=== PATIENT | male | born 1950 | race Caucasian/White ===

== ENCOUNTER 2020-03-28 06:53 | Outpatient (CLI) | payer MEDICARE, OTHER, SELFPAY ==
--- NOTE | ~2020-03-28 | CT_ITS ---
EXAMINATION: CT lung screening EXAM DATE: 03/28/2020 07:35 INDICATION: Personal history of nicotine dependence. TECHNIQUE: Spiral low dose CT of the chest without contrast. Axial, coronal and sagittal images were reviewed. The dose-length product (DLP) for this examination was 84.28 mGy-cm. The exposure was ta ilored according to patient size (auto mA exposure control), and iterative reconstruction (ASIR) was used as additional dose reduction technique. Comparison is made to prior examination from 03/03/2019. FINDINGS: There is a new 3 mm right lower lobe nodule on axial image 48. Some other small regions of post infectious residua are unchanged. There is mild to moderate emphysema. Cardiac pacemaker/AICD d evice. Tracheobronchial tree is patent. There is no mediastinal, hilar or axillary lymphadenopathy . There are no pleural or pericardial effusions. There is no pneumothorax. Heart normal in size . There are sternotomy wires, and cardiac/coronary surgical changes. Correlate with prior history. IVC filter. Hyperdense liver at 86 Hounsfield units, could indicate hemochromatosis or be from amioda rafaela. There is thoracic spondylosis without osteoblastic or osteolytic lesions identified. IMPRESSION: Lung-RADS category 2, benign appearance or behavior (<1% chance of malignancy); recommend continued LDCT screening in 1 year. Reviewed, dictated and finalized at location A.
== END 2020-03-28 06:54 | disposition home or self-care (01) ==
LOC: ANHIMG 07:00
PROVIDERS: PCP Family Medicine; Visit Provider Family Medicine
DX: Z87.891 Personal history of nicotine dependence (principal)
CPT/HCPCS: G0297

== ENCOUNTER 2020-05-08 09:30 | Outpatient (CLI) | payer MEDICARE, OTHER, SELFPAY ==
--- NOTE | ~2020-05-08 | XR_ITS ---
EXAMINATION: XR chest 2V DATE: 05/08/2020 09:58 INDICATION: Long-term amiodarone use. TECHNIQUE: Frontal and lateral views of the chest were obtained. COMPARISON: Chest 2 views 03/30/2019, chest CT 03/28/2020 FINDINGS: The lungs are hyperexpanded, consistent with emphysema. There is mild scarring at right mary jo g base. No pleural effusion or pneumothorax. The heart size is normal. Median sternotomy wires and me diastinal surgical clips are seen, likely from prior coronary artery bypass grafting. There is a left pacer/defibrillator with leads in right atrium, right ventricle, and coronary sinus. There is a filt er in the inferior vena cava. There is mild chronic anterior wedging of multiple midthoracic vertebra l bodies. IMPRESSION: 1. Stable mild scarring at right lung base. 2. Emphysema. Reviewed, dictated and finalized at location B. ING REPRESENTATIVE
== END 2020-05-08 09:31 | disposition home or self-care (01) ==
PROVIDERS: PCP Family Medicine
DX: Z51.81 Encounter for therapeutic drug level monitoring (principal); Z79.899 Other long term (current) drug therapy; J43.9 Emphysema, unspecified; R91.8 Other nonspecific abnormal finding of lung field
CPT/HCPCS: 71046

== ENCOUNTER 2021-07-04 08:13 | Outpatient (CLI) | payer MEDICARE, OTHER, SELFPAY ==
--- NOTE | ~2021-07-04 | CT_ITS ---
EXAMINATION: CTA chest DATE: 07/04/2021 09:02 INDICATION: Abdominal aortic aneurysm TECHNIQUE: Computed tomographic angiography (CTA) of the chest was performed without and with 100 mL Omnipaque-350 intravenous contrast. Volume-rendered 3D-reconstructions of the aorta and large arterie s were constructed by the technologist on a separate workstation. Automated exposure control and iter ative reconstruction technique were employed. The dose-length product was 750.20 mGy-cm. COMPARISON: CT dated 03/28/2020 FINDINGS: No significant interval change in a fusiform ascending thoracic aortic aneurysm measuring up to 4.5 x 4.3 cm in maximal diameter tapering to normal caliber at the aortic arch and descending thoracic aor ta. No dissection. Mild emphysema. Mild discoid atelectasis at the right lung base. Unchanged 3 mm ri ght middle lobe nodule. Persistent mucus impacted bronchus with tree-in-bud pattern in the posterior segment of the right upper lobe. No pneumonia, pulmonary edema or pleural effusion. Mild cardiomegaly with left ventricular enlargement. Three lead pacemaker/AICD seen with leads terminating at the righ t atrial appendage, apex of the right ventricle and in a coronary vein overlying the lateral wall of the left ventricle having traversed the coronary sinus. Atherosclerotic coronary artery calcification . Median sternotomy and changes of prior coronary artery bypass grafting. No pericardial effusion. No pathologically enlarged thoracic lymphadenopathy. Multiple contrast opacified chest wall and paraspi nal collateral vessels suggesting significant stenosis of the left subclavian and brachiocephalic vei ns around the pacemaker leads bilateral renal cysts measuring up to 2.6 cm in the right kidney. Infra renal IVC filter. There are few diverticula along the splenic flexure of the colon without adjacent i nflammatory change to suggest diverticulitis. Mild thoracic levocurvature with multiple chronic mild compression fractures in the mid to lower thoracic spine and mild to moderate spondylosis. Severe low er cervical spondylosis. IMPRESSION: 1. No significant change in a fusiform 4.5 x 4.3 cm ascending thoracic aortic aneurysm. 2. Mild emphysema. 3. Mild cardiomegaly with left ventricular enlargement. Reviewed, dictated and finalized at location B. ING MACHINE OPERATOR IMPRESSION: 1. No significant change in a fusiform 4.5 x 4.3 cm ascending thoracic aortic a neurysm. 2. Mild emphysema. 3. Mild cardiomegaly with left ventricular enlargement.
[2021-07-04 08:41] LABS: Estimated Glomerular Filt Rate 46
== END 2021-07-04 08:14 | disposition home or self-care (01) ==
LOC: ANHIMG 08:17
PROVIDERS: PCP Family Medicine; Visit Provider Internal Medicine Cardiovascular Disease
DX: I77.819 Aortic ectasia, unspecified site (principal); J43.9 Emphysema, unspecified; I51.7 Cardiomegaly
CPT/HCPCS: 71275; Q9967

== ENCOUNTER → 2021-09-23 02:06 | Day surgery (SDC) | payer MEDICARE, OTHER, SELFPAY ==
[2021-09-20 16:51] VITALS: BMI 22.6
[2021-09-23 09:04] VITALS: BP 146/99; PULSE 75; RESP 18; TEMP 36.5; O2SAT 100
[2021-09-23 09:04] LABS: Basophils Absolute Auto 0.1 K/mm3 (0.0-0.1); Basophils Percent Auto 0.7 % (0.2-1.2); Eosinophils Absolute Auto 0.2 K/mm3 (0-0.3); Eosinophils Percent Auto 1.9 % (0-4.4); Hematocrit 49.3 % (42.0-52.0); Hemoglobin 15.4 g/dL (14.0-18.0); Immature Granulocyte Absolute 0.05 K/mm3 (0.00-0.031); Immature Granulocyte Percent A 0.5 % (0-0.5); Lymphocytes Absolute Auto 1.45 K/mm3 (0.9-3.2); Lymphocytes Percent Auto 13.4 % (18.3-44.2); Mean Corpuscular HGB Conc 31.2 g/dl (32-36); Mean Corpuscular Hemoglobin 28.9 pg (26-34); Mean Corpuscular Volume 92.5 fl (80-100); Mean Platelet Volume 10.8 fl (7.4-10.4); Monocytes Absolute Auto 0.9 K/mm3 (0.1-0.6); Monocytes Percent Auto 8.2 % (2.6-8.5); Neutrophils Absolute Auto 8.1 K/mm3 (1.3-6.7); Neutrophils Percent Auto 75.3 % (45.5-73.1); Platelet Count Result 217 k/mm3 (150-375); Red Blood Count 5.33 M/mm3 (4.6-6.20); Red Cell Distribution Width 14.1 % (11.5-14.5); White Blood Count 10.8 K/mm3 (4.5-10.0)
[2021-09-23 09:10] VITALS: BMI 23.1
[2021-09-23 09:18] LABS: Anion Gap 7 mmol/L (8-16); Blood Urea Nitrogen 16 mg/dL (9-20); Carbon Dioxide 29 mmol/L (22-30); Chloride 103 mmol/L (98-107); Estimated CRCL calculation 47 ml/min; Estimated Glomerular Filt Rate 50; Glucose 104 mg/dL (65-110); Potassium 4.6 mmol/L (3.4-5.0); Sodium 139 mmol/L (137-145)
[2021-09-23 09:20] LABS: Prothrombin Time 13.2 Seconds (11.1-14.7)
[2021-09-23] MEDS: SODIUM CHLORIDE 0.9% IV 500 ML 100 ML IV CONT (09:20)
--- NOTE | 2021-09-23 09:47 | SUR.PREOP ---
Dr. Hoyt at bedside speaking with patient and family.
--- NOTE | 2021-09-23 09:48 | SUR.PREOP ---
Dr. Hoyt notified of outdated H & P office note.
--- NOTE | 2021-09-23 10:12 | SUR.PREOP ---
After lengthy discussion between Dr. Hoyt, patient and patient's LHC as been cancelled with plans to reschedule to be done at [facility]. Dr. Hoyt's office to reschedule this.
== END ==
PROVIDERS: PCP Family Medicine; Visit Provider Internal Medicine Cardiovascular Disease
PROC: 4A023N7 Measurement of Cardiac Sampling and Pressure, Left Heart, Percutaneous Approach (ICD-10-PCS; CPT 93452; principal; 2021-09-23 10:00)
DX: I25.10 Atherosclerotic heart disease of native coronary artery without angina pectoris (principal); Z53.9 Procedure and treatment not carried out, unspecified reason
CPT/HCPCS: 36415; 80048; 85025; 85610; 99211; G0463; J1644; J7040

== ENCOUNTER 2022-03-24 12:27 | Outpatient (CLI) | payer MEDICARE, OTHER, SELFPAY ==
--- NOTE | 2022-03-24 14:51 | WPDPFTINT ---
PFT Procedure Performed PFT Procedure Performed Plethysmography (Lung Vol) Diffusing Cap (DLCO) Flow Vol Loop Spirometry w/o Bronchodil PFT Interpretation This is a pulmonary function test with spirometry, plethysmography and diffusing capacity. The test was performed and results interpreted in accordance with the 2019 and 2005 ATS/ERS Task Force guidelines respectively using the Global Lung Function Initiative-2012 reference equations. Patient demonstrated good effort and cooperation. Reproducibility criteria were met. The quality of the spirometry maneuver was Grade A. Findings: Spirometry: there is decreased maximal expiratory airflow at all lung volumes with concave expiratory flow tracing. The FVC is 3.94 L, 113% predicted. The FEV1 is 2.57 L, 96% predicted. The FEV1: FVC ratio 65%. Plethysmography: The total lung capacity is 6.25 L, 105% predicted. Functional residual capacity is 4.16 L, 121% predicted. The residual volume is 2.31 L, 93% predicted. Diffusion capacity: Diffusing capacity unadjusted for hemoglobin and carboxyhemoglobin is 19.6, 85% predicted. The diffusing capacity adjusted for alveolar volume is 3.31, 83% predicted. Impression: There is a mild obstructive abnormality with a normal FEV1. The lung volumes are normal. The diffusion capacity is normal. There are no prior studies for comparison
== END 2022-03-24 12:28 | disposition home or self-care (01) ==
LOC: ANHPFT 12:31
PROVIDERS: PCP Family Medicine
DX: I48.91 Unspecified atrial fibrillation (principal); Z95.810 Presence of automatic (implantable) cardiac defibrillator; R94.2 Abnormal results of pulmonary function studies
CPT/HCPCS: 94375; 94726; 94729

== ENCOUNTER 2022-07-21 09:09 | Outpatient (CLI) | payer MEDICARE, OTHER, SELFPAY ==
--- NOTE | ~2022-07-21 | CT_ITS ---
EXAMINATION: CTA chest DATE: 07/21/2022 09:38 INDICATION: Abdominal aortic aneurysm TECHNIQUE: Computed tomographic angiography (CTA) of the chest was performed without and with 100 mL Omnipaque-350 intravenous contrast. Volume-rendered 3D-reconstructions of the aorta and large arterie s were constructed by the technologist on a separate workstation. 07/04/2021 The dose-length product wa s mGy-cm. COMPARISON: None. FINDINGS: Slight increase in size of a fusiform ascending thoracic aortic aneurysm previously measuring 4.5 x 4 .3 cm in maximal diameter, currently measuring 4.7 x 4.5 cm but containing to taper to a normal calib er at the aortic arch and descending thoracic aorta. No dissection. Mild emphysema. Unchanged minimal discoid atelectasis in the right upper lobe and mild bibasilar discoid atelectasis. Unchanged 4 mm n odule in the right upper lobe and 3 mm nodule in the right middle lobe. No pneumonia, pulmonary edema or pleural effusion. Mild cardiomegaly with left ventricular enlargement. Atherosclerotic coronary a rtery calcification. Median sternotomy and changes of prior coronary artery bypass grafting. Three le ad pacemaker/AICD seen with leads terminating at the right atrial appendage, apex of the right ventri jennifer and in a coronary vein overlying the lateral wall of the left ventricle having traversed the kenn nary sinus. No pericardial effusion. No pathologically enlarged thoracic lymphadenopathy. Again seen are multiple contrast opacified chest wall and paraspinal collateral vessels consistent with stenosis of the left subclavian and brachiocephalic veins around the pacemaker leads. Mild bilateral gynecoma stia. Bilateral renal cysts measuring up to 2.3 cm and the left kidney. There is a persistent mural c alcification along the posterior margin of a 2.2 cm right renal cyst. Infrarenal IVC filter. There ar e few diverticula along the splenic flexure of the colon without adjacent inflammatory change to sugges t diverticulitis. Mild thoracic levocurvature with multiple chronic mild compression fractures in the mid to lower thoracic spine and mild to moderate spondylosis. Severe lower cervical spondylosis. IMPRESSION: 1. Slight increase in size of a now 4.7 x 4.5 cm fusiform ascending thoracic aortic aneurysm. 2. Mild emphysema. 3. Mild cardiomegaly with left ventricular enlargement. Reviewed, dictated and finalized at location B. COOK IMPRESSION: 1. Slight increase in size of a now 4.7 x 4.5 cm fusiform ascending thoracic ao rtic aneurysm. 2. Mild emphysema. 3. Mild cardiomegaly with left ventricular enlargement.
[2022-07-21 09:31] LABS: Estimated Glomerular Filt Rate 43
== END 2022-07-21 09:10 | disposition home or self-care (01) ==
PROVIDERS: PCP Family Medicine; Visit Provider Internal Medicine Cardiovascular Disease
DX: I71.40 Abdominal aortic aneurysm, without rupture, unspecified (principal); J43.9 Emphysema, unspecified; I51.7 Cardiomegaly
CPT/HCPCS: 71275; Q9967

== ENCOUNTER 2023-07-16 13:48 | Inpatient (IN) | payer MEDICARE, OTHER, SELFPAY ==
[2023-07-16] VITALS (13 sets, daily range): BP systolic 116–142; BP diastolic 78–96; PULSE 80–86; RESP 12–20; TEMP 36.6; O2SAT 97–100
--- NOTE | ~2023-07-16 | CT_ITS ---
EXAMINATION: CTA chest PE protocol DATE: 07/16/2023 19:14 INDICATION: Right-sided chest pain and hemoptysis TECHNIQUE: Computed tomography angiography (CTA) of the chest was performed with 100 mL Omnipaque-350 intravenous contrast timed to evaluate the pulmonary arteries. Coronal maximum intensity projection 3D-reconstructions were created by the technologist. The dose-length product (DLP) was 409.58 mGy-cm. Automated exposure control and iterative reconstruction technique were employed. COMPARISON: 07/21/2022 FINDINGS: The pulmonary arteries are well-opacified. No pulmonary embolism is identified. There are s mall pleural effusions. Cardiomegaly is noted. There is mild emphysema. There is mild atelectasis of the lungs. There is no pneumothorax. Bilateral gynecomastia is noted. There is mild bilateral hilar l ymphadenopathy, likely reactive. There is a 4.7 cm fusiform aneurysm of the ascending aorta. There is moderate thoracic spondylosis. IMPRESSION: 1. No pulmonary embolus identified. 2. Small pleural effusions. 3. Cardiomegaly. Reviewed, dictated and finalized at location F. R D ENGINEER
--- NOTE | ~2023-07-16 | US_ITS ---
EXAMINATION: US venous doppler [facility] DATE: 07/16/2023 19:02 INDICATION: Bilateral lower limb swelling TECHNIQUE: Young scale images without and with compression and Doppler images of the bilateral lower e xtremity veins were obtained. COMPARISON: None FINDINGS: The right common femoral vein, profunda femoral vein, femoral vein, popliteal vein, peroneal trunk, p osterior tibial veins, and greater saphenous vein are patent. The left common femoral vein, profunda femoral vein, femoral vein, popliteal vein, peroneal trunk, po sterior tibial veins, and greater saphenous vein are patent. IMPRESSION: 1. Patent bilateral lower extremity veins. No evidence of deep venous thrombosis. Reviewed, dictated and finalized at location F. LOGGER IMPRESSION: 1. Patent bilateral lower extremity veins. No evidence of deep venous thrombosi s.
--- NOTE | 2023-07-16 18:10 | ECG_ITS ---
Measurements Intervals Myra Rate: 85 P: -48 ND: 85 QRS: -86 QRSD: 190 T: 30 QT: 495 QTc: 592 Interpretive Statements ELECTRONIC VENTRICULAR PACEMAKER VENTRICULAR PREMATURE COMPLEXES BASELINE ARTIFACT- III NO FURTHER INTERPRETATION IS POSSIBLE ATYPICAL ECG NO PREVIOUS ECG AVAILABLE FOR COMPARISON Electronically Signed On 07-16-2023 18:55:55 BALLET TEACHER by Bora Mast D.O.
--- NOTE | 2023-07-16 18:10 | ED.GENADULT ---
HPI - General Adult General Chief complaint: Unspecified <Lorena Dougherty PA-C - Last Filed: 07/17/23 01:28> Stated complaint: pneumonia <Lorena Dougherty PA-C - Last Filed: 07/17/23 01:28> Time Seen by Provider: 07/16/23 17:42 <Lorena Dougherty PA-C - Last Filed: 07/17/23 01:28> History of Present Illness HPI narrative: 73-year-old male with history of type 2 diabetes, hyperlipidemia, ischemic cardiomyopathy with a pacemaker and defibrillator in place since 2012, hypertension, CKD stage 4, pulmonary fibrosis, ascending aortic aneurysm reports to the emergency department for evaluation for right-sided pleuritic chest pain. Patient states the patient started on the left side about 3-4 days ago, now has moved to the right side for the past 2 days. States he had some right shoulder pain a few days ago, but that has since resolved. He otherwise denies radiating pain or symptoms, aggravating or alleviating factors beyond deep inspiration. The following history was provided by the patient's and the patient himself. The patient tested positive for COVID on 06/05/2024. The patient was seen by his PCP on 07/09/2023 for shortness of breath, worse on exertion. The concern was a possible secondary pneumonia, therefore he was started on Augmentin. There is also concern for pulmonary fibrosis given amiodarone use for years, however CT was held at that time due to upcoming appointment patient's lead project engineer, Dr. Hoyt where he is scheduled for CT scan on 07/27/2023. The patient was started on Augmentin and finished his last dose today. He reports persistent dyspnea, especially on exertion. Patient's did state that she noticed a productive cough and hemoptysis and mucus a few days ago which has since cleared up. The patient is also reporting bilateral lower extremity edema that started today, right greater than left. He denies history of this in the past and denies history of CHF. He had a bypass performed in 2012. He is on amiodarone for ?irregular heartbeat?, however has not had his defibrillator activated many years. The patient was evaluated by his bin worker on 07/01 at [facility] and was told he had an irregular heartbeat, however paced itself also therefore no intervention was required. He denies fever, abdominal pain, nausea, vomiting, diarrhea, diaphoresis, syncope. He does endorse palpitations with states these are not abnormal for him believes they are secondary to PVCs. Patient does state that he smoked approximately 1 pack per day for 25-30 years. He has not smoked since he was in his 40s. States he was told at one point he had COPD, however was felt by his lead project engineer he does not have COPD. <Lorena Dougherty PA-C - Last Filed: 07/17/23 01:28> Related Data Home medications: Home Medications Medication Instructions Recorded Confirmed amiodarone 200 mg tablet 200 mg PO DAILY 11/22/19 07/17/23 aspirin 81 mg tablet,delayed 81 mg PO DAILY 11/22/19 07/17/23 release mexiletine 150 mg capsule 150 mg PO TID 06/03/22 07/17/23 atorvastatin 80 mg tablet 80 mg PO DAILY 12/05/22 07/17/23 metoprolol succinate 50 mg 100 mg PO DAILY 12/05/22 07/17/23 tablet,extended release 24 hr <Lorena Dougherty PA-C - Last Filed: 07/17/23 01:28> Allergies/adverse reactions: Allergies Allergy/AdvReac Type Severity Reaction Status Date / Time No Known Allergies Allergy Verified 07/09/23 13:15 <Lorena Dougherty PA-C - Last Filed: 07/17/23 01:28> Review of Systems Review of Systems: CONSTITUTIONAL: Denies fever, chills, or sweats. EYES: Denies visual changes, redness, or discharge. ENT: Denies rhinorrhea, congestion, sore throat, or otalgia. CARDIOVASCULAR: See HPI RESPIRATORY: See HPI GASTROINTESTINAL: Denies abdominal pain, nausea, vomiting, or diarrhea. GENITOURINARY: Denies dysuria or hematuria. SKIN: Denies rash or itching. MUSCULOSKELETAL: Denies back pain, joint pain, or myalgia.
[2023-07-16 18:33] LABS: Basophils Absolute Auto 0.1 K/mm3 (0.0-0.1); Eosinophils Absolute Auto 0.3 K/mm3 (0-0.3); Eosinophils Percent Auto 3.7 % (0-4.4); Hematocrit 39.9 % (42.0-52.0); Hemoglobin 12.3 g/dL (14.0-18.0); Immature Granulocyte Absolute 0.04 K/mm3 (0.00-0.031); Immature Granulocyte Percent A 0.6 % (0-0.5); Lymphocytes Absolute Auto 1.03 K/mm3 (0.9-3.2); Lymphocytes Percent Auto 15.2 % (18.3-44.2); Mean Corpuscular HGB Conc 30.8 g/dl (32-36); Mean Corpuscular Hemoglobin 28.1 pg (26-34); Mean Corpuscular Volume 91.1 fl (80-100); Mean Platelet Volume 10.9 fl (7.4-10.4); Monocytes Absolute Auto 0.7 K/mm3 (0.1-0.6); Monocytes Percent Auto 9.8 % (2.6-8.5); Neutrophils Absolute Auto 4.7 K/mm3 (1.3-6.7); Neutrophils Percent Auto 69.7 % (45.5-73.1); Platelet Count Result 272 k/mm3 (150-375); Red Blood Count 4.38 M/mm3 (4.6-6.20); White Blood Count 6.8 K/mm3 (4.5-10.0)
[2023-07-16 18:44] LABS: INR 1.2; Prothrombin Time 15.6 Seconds (11.1-14.7)
[2023-07-16 18:46] LABS: Alanine Aminotransferase 77 U/L (6-50); Albumin Level 3.6 g/dL (3.5-5.1); Alkaline Phosphatase 101 U/L (38-126); Anion Gap 5 mmol/L (8-16); Aspartate Amino Transferase 56 U/L (17-59); Bilirubin,Total 0.8 mg/dL (0.2-1.3); Blood Urea Nitrogen 14 mg/dL (9-20); Calcium 8.5 mg/dL (8.4-10.2); Carbon Dioxide 28 mmol/L (22-30); Chloride 102 mmol/L (98-107); Estimated Glomerular Filt Rate 60; Glucose 98 mg/dL (65-110); Lipase 255 U/L (23-300); Sodium 135 mmol/L (137-145)
[2023-07-16 18:55] LABS: NT Pro B Type Natriuretic Pept 8600 pg/mL (19.9-100); Troponin I 0.013 ng/mL (0.000-0.034)
--- NOTE | 2023-07-16 20:06 | PC.NURSE ---
Patient ambulated to the restroom with steady gate
[2023-07-16 20:24] LABS: Appearance Urine Clear (Clear); Bilirubin Urine Negative (Negative); Blood Urine Negative (Negative); Color Urine Yellow (Yellow); Glucose Urine UA Negative (Negative); Ketones Urine Negative (Negative); Leukocyte Esterase Ur Negative LEU/UL (Negative); Nitrate Urine Negative (Negative); Protein Urine Negative (Negative)
[2023-07-16 20:30] LABS: Add Urine Microscopic? NO; Specific Grav Ur 1.044 (1.001-1.035)
[2023-07-16 23:12] LABS: Troponin I 0.012 ng/mL (0.000-0.034)
[2023-07-17] VITALS (15 sets, daily range): BP systolic 114–143; BP diastolic 74–99; PULSE 80–115; RESP 16–20; TEMP 35.6–36.9; O2SAT 98–100; BMI 25.4
[2023-07-17] MEDS: FUROSEMIDE INJ 40 MG/4 ML VIAL IV PUSH (02:48)
--- NOTE | 2023-07-17 03:30 | ADMGEN ---
This patient, Dre Franco, was admitted to Medical Room 249-01. Patient/family oriented to hospital policies and general routines including ID bracelet, bed and alarms, visiting hours, pain management, procedures, bathroom and other care routines, personal items, smoking policy, room service/diet, and visiting hours. Information on how to activate the Rapid Response Team has been discussed. Patient/Family are encouraged to report perceived risks to care and to ask questions if they do not understand what they are told or what they should do.
[2023-07-17] MEDS: METOPROLOL SUCCINATE EXT REL 50 MG TABCR 100 MG PO (11:12)
[2023-07-17] MEDS: ASPIRIN 81 MG ENTERIC TABLET PO (11:16)
[2023-07-17] MEDS: ATORVASTATIN 40 MG TABLET 80 MG PO (11:16)
[2023-07-17] MEDS: AMIODARONE HCL 200 MG TABLET PO (11:16)
[2023-07-17] MEDS: MEXILETINE HCL 150 MG CAPSULE PO ×3 (11:18→17:27)
--- NOTE | 2023-07-17 14:46 | PM.IMHP ---
H&P: HPI History of Present Illness Date/Time: 07/17/23 14:46 Chief Complaint: 73-year-old male with history of type 2 diabetes, hyperlipidemia, ischemic cardiomyopathy with a pacemaker and defibrillator in place since 2012, hypertension, CKD stage 4, pulmonary fibrosis, ascending aortic aneurysm reports to the emergency department for evaluation for right-sided pleuritic chest pain. Narrative: HPI provided by pt who reports left side chest pain that started about 3-4 days ago, now has moved to the right side for the past 2 days.? States he had some right shoulder pain a few days ago,that has since resolved, he denies any recent falls or trauma,?he otherwise denies radiating pain or symptoms, aggravating or alleviating factors beyond deep inspiration. Patient reports a positive COVID test on 06/05/2024, he reports seeing his PCP on 07/09/2023 for shortness of breath, worse on exertion, pt reports being started on Augmentin for secondary pneumonia.? He reports persistent dyspnea, especially on exertion. The patient is also reporting bilateral lower extremity edema that started about one day prior to admission, right greater than left.? He denies history of this in the past and denies history of CHF.? He had a bypass performed in 2012.? He is on amiodarone for ?irregular heartbeat?, however has not had his defibrillator activated many years.? He denies fever, abdominal pain, nausea, vomiting, diarrhea, diaphoresis, syncope.? He does endorse palpitations with states these are not abnormal for him believes they are secondary to PVCs.? Patient does state that he smoked approximately 1 pack per day for 25-30 years.? States he was told at one point he had COPD, however was felt by his computer aided design drafter he does not have COPD. ED work-up reveals: CBC without leukocytosis, hemoglobin is 12.3 slightly decreased from prior study history of anemia, denies melena or hematochezia, MCV normal, mild ALT elevation 77, all other LFTs are normal, lipase normal no tenderness on exam negative Montejo's sign, low suspicion for cholecystitis, CTA chest shows no evidence of PE. CT revealed small pleural effusion and cardiomegaly Review of Systems Review of Systems: CONSTITUTIONAL: Denies fever, chills, or sweats. EYES: Denies visual changes, redness, or discharge. ENT: Denies rhinorrhea, congestion, sore throat, or otalgia. CARDIOVASCULAR: See HPI RESPIRATORY: See HPI GASTROINTESTINAL: Denies abdominal pain, nausea, vomiting, or diarrhea. GENITOURINARY: Denies dysuria or hematuria. SKIN: Denies rash or itching. MUSCULOSKELETAL: Denies back pain, joint pain, or myalgia. NEUROLOGIC: Denies headache, numbness, or weakness. PSYCHIATRIC: Denies anxiety or depression. ON LICENSE OF [facility] Family History Family History Sibling Cerebrovascular accident Mother Diabetes mellitus Hypertension Father History of blood clots Hypertension Social History Social History Smoking packs per day: 1 Smoking cigarettes per day: 20.0 Years smoked: 35 Smoking pack-years: 35.00 Smoking status: Former smoker Tobacco type: cigarettes Second hand tobacco smoke exposure: Yes Additional smoking assessment comments: former heavy smoker, quit 25 years ago. Alcohol intake: never Substance use: never Do You Feel Safe in your Home?: Yes Lack of Transportation: No Lack of Food: Never True Current Housing: I Have Housing Concerned About Future Housing: No Difficulty Paying Gas/Electric Bills: No Difficulty Paying for Meds: No Currently Unemployed: No Education: Bachelor's Degree Difficulty w/ Childcare or Family Care: No Living arrangements: with family Additional living arrangements comments: Pt lives with his Occupation/Education: retired Gender identity (if verbalized by the patient): Male Sexual Orientation (if Verbalized by the Patien
--- NOTE | 2023-07-17 15:12 | PCPTNOTE ---
Awaiting complete medical work up (history and physical by hospitalist) prior to PT evaluation.
--- NOTE | 2023-07-17 16:47 | PM.CNCAR ---
Assessment and Plan Assessment and plan (1) Ischemic cardiomyopathy: Code(s): I25.5 - Ischemic cardiomyopathy Status: Acute Plan This is a 73-year-old man who has a relatively severe ischemic cardiomyopathy which is well documented in his chart he is followed in our office by Dr. Hoyt. He is currently hospitalized with CHF exacerbation he is feeling significantly better after being diuresed with furosemide overnight. Currently there is no difficulty with hypotension and he is on a appropriate dose of metoprolol succinate. I am going to initiate guideline directed medical therapy with Entresto and spironolactone at this time. We will follow in the hospital for at least a couple of days to ensure that he does not become hypotensive with this and following that appropriate follow-up is already scheduled in my office with my partner next month. I will see him tomorrow and assess his response to initiation of these medications Mike Medina MD [facility] History of Present Illness History of Present Illness Consult date/time: 07/17/23 16:47 Reason For Visit: CHF Exacerbation Narrative: This is a 73-year-old man I am seeing at the request of the hospital this evening because of congestive heart failure. Patient is known to my partner, Dr. Hoyt but not really known to me prior to this consultation. He came into the hospital yesterday with shortness of breath and lower extremity edema. The patient's family say they thought this was related to recent problems with coronavirus infection with possible pneumonia. The patient is known to have coronary artery disease with a relatively severe ischemic cardiomyopathy. The summary of his history is that he has multivessel coronary disease with surgical revascularization in 2012. According to the records he had a infarction because of occlusion of 1 of his grafts shortly after the operation. His left ventricular ejection fraction is known to be low at about 25%. He has a history of malignant ventricular arrhythmias which are managed by a defibrillator as well as medical therapy with both amiodarone and mexiletine. His addictions counselor assistant currently is at [facility] and recently saw this patient for routine follow-up. At that time his metoprolol dosage was increased to 1 100 mg daily. According to my partner's notes he is not taking affective vasodilators therapy or diuretics because of problematic hypotension in the past. The patient's who is providing most of the history indicates that recently he has not had any difficulty with low blood pressure readings. In the hospital his blood pressure is actually significantly elevated for someone with poor LV function with systolic pressures in the 140 and 150 range. The laboratory data demonstrates reasonably good renal function he is not anemic and his electrolytes look normal. His cardiac rhythm appears to be sinus with atrial sensing and ventricular pacing. His defibrillator device is functioning normally there have been some recent episodes of nonsustained ventricular tachycardia and some sustained ventricular tachycardia that has been treated successfully with antitachycardia pacing. He has not received any shocks. Review of Systems Constitutional: Constitutional: Reports lethargy Eyes: Eyes: Reports no additional eye complaints ENT: Reports system reviewed and no additional complaints, except as documented Cardiovascular: Cardiovascular: Reports as per HPI Respiratory: Respiratory: Reports dyspnea on exertion Gastrointestinal: Gastrointestinal: Reports no additional gastrointestinal complaints Musculoskeletal: Musculoskeletal: Reports no additional musculoskeletal complaints Integumentary/Breasts: Skin/Breast: Reports system reviewed and no additional complaints, except as docu Neurologic: Reports system reviewed and no additional complaints, except as documented Endocrine: Endocrine: Reports no ad
[2023-07-17 17:23] LABS: NT Pro B Type Natriuretic Pept 10000 pg/mL (19.9-100)
[2023-07-17] MEDS: SACUBITRIL/VALSARTAN 24-26 MG TABLET 1 TAB PO (21:09)
[2023-07-18] VITALS (14 sets, daily range): BP systolic 96–108; BP diastolic 60–81; PULSE 80–105; RESP 16–18; TEMP 36.4–36.5; O2SAT 99–100
[2023-07-18 05:19] LABS: Basophils Absolute Auto 0.1 K/mm3 (0.0-0.1); Eosinophils Absolute Auto 0.3 K/mm3 (0-0.3); Eosinophils Percent Auto 3.5 % (0-4.4); Immature Granulocyte Absolute 0.03 K/mm3 (0.00-0.031); Immature Granulocyte Percent A 0.4 % (0-0.5); Lymphocytes Absolute Auto 1.19 K/mm3 (0.9-3.2); Lymphocytes Percent Auto 16.8 % (18.3-44.2); Mean Corpuscular HGB Conc 30.6 g/dl (32-36); Mean Corpuscular Hemoglobin 27.6 pg (26-34); Mean Corpuscular Volume 90.2 fl (80-100); Mean Platelet Volume 10.6 fl (7.4-10.4); Monocytes Absolute Auto 0.7 K/mm3 (0.1-0.6); Monocytes Percent Auto 10.2 % (2.6-8.5); Neutrophils Absolute Auto 4.8 K/mm3 (1.3-6.7); Neutrophils Percent Auto 68.1 % (45.5-73.1); Platelet Count Result 257 k/mm3 (150-375); Red Blood Count 3.99 M/mm3 (4.6-6.20); Red Cell Distribution Width 13.9 % (11.5-14.5); White Blood Count 7.1 K/mm3 (4.5-10.0)
[2023-07-18 05:41] LABS: Alanine Aminotransferase 59 U/L (6-50); Albumin Level 2.7 g/dL (3.5-5.1); Alkaline Phosphatase 77 U/L (38-126); Anion Gap 5 mmol/L (8-16); Aspartate Amino Transferase 40 U/L (17-59); Bilirubin,Total 0.8 mg/dL (0.2-1.3); Blood Urea Nitrogen 17 mg/dL (9-20); Calcium 7.9 mg/dL (8.4-10.2); Carbon Dioxide 30 mmol/L (22-30); Chloride 104 mmol/L (98-107); Estimated Glomerular Filt Rate 54; Glucose 101 mg/dL (65-110); Potassium 3.8 mmol/L (3.4-5.0); Sodium 139 mmol/L (137-145)
--- NOTE | 2023-07-18 07:11 | ECG_ITS ---
Measurements Intervals [place] Rate: 83 P: 248 [place]: 104 QRS: 267 QRSD: 202 T: 28 QT: 502 QTc: 592 Interpretive Statements ELECTRONIC VENTRICULAR PACEMAKER NO FURTHER INTERPRETATION IS POSSIBLE ATYPICAL ECG COMPARED TO ECG 07/16/2023 18:26:16 NO SIGNIFICANT CHANGES Electronically Signed On 07-18-2023 15:15:08 COMPUTER SOFTWARE ENGINEER by Bora Mast D.O.
[2023-07-18 07:18] LABS: Hemoglobin A1C 6.1 % (<5.7)
[2023-07-18 08:23] LABS: Glucose Point of Care 94 mg/dl (65-105)
--- NOTE | 2023-07-18 08:34 | PM.IMPN ---
Progress Note: A&P Assessment and Plan (1) Type 2 diabetes mellitus with hyperglycemia: Qualifiers: Diabetes mellitus prison insulin use: without prison use Qualified Code(s): E11.65 - Type 2 diabetes mellitus with hyperglycemia Code(s): E11.65 - Type 2 diabetes mellitus with hyperglycemia Status: Acute Assessment and Plan: pt does not take home insulin last A1C, 07/18/2023 is 6.1 - continue bedside glucose management q 4 hrs (2) Mixed hyperlipidemia: Code(s): E78.2 - Mixed hyperlipidemia Status: Acute Assessment and Plan: -continue home medication (3) Essential (primary) hypertension: Code(s): I10 - Essential (primary) hypertension Status: Acute Assessment and Plan: Chronic continue home medication (4) CHF exacerbation: Code(s): I50.9 - Heart failure, unspecified Status: Acute Assessment and Plan: -continue telemetry monitoring -continue daily weights -consult cardiology appreciate recommendation and plan -per cardiology pt will start sacubitril/valsartan, and spironolactone -continue home medications -echocardiogram pending -check EKG PRN if pt c/o chest pain, or SOB -oxygen titration therapy maintain SpO2 above 93% -fluid restriction Plan Continue home medications: -ASA 81 mg daily -atorvastatin 80 mg daily -furosemide 40 mg p.o. -metoprolol succinate 100 mg p.o. daily -Mexiletine HCI 150 mg p.o. t.i.d. -amiodarone 200 mg p.o. daily VTE Prophylaxis: Enoxaparin subQ, patient refusing enoxaparin, will increase ASA to 325 DIET: Heart healthy diet Anticipated hospital stay: > 2 days Code Status: Full code Subjective Date/time seen: 07/18/23 08:34 Interval history: 73-year-old male with history of type 2 diabetes, hyperlipidemia, ischemic cardiomyopathy with a pacemaker and defibrillator in place since 2012, hypertension, CKD stage 4, pulmonary fibrosis, ascending aortic aneurysm reports to the emergency department for evaluation for right-sided pleuritic chest pain. Narrative: ?HPI provided by pt who reports left side? chest pain that started? about 3-4 days ago, now has moved to the right side for the past 2 days.? States he had some right shoulder pain a few days ago,that has since resolved, he denies any recent falls or trauma,?he otherwise denies radiating pain or symptoms, aggravating or alleviating factors beyond deep inspiration.? Patient reports a positive COVID test? on 06/05/2024, he reports seeing his PCP on 07/09/2023 for shortness of breath, worse on exertion, pt reports being started on Augmentin for secondary pneumonia.? He reports persistent dyspnea, especially on exertion. The patient is also reporting bilateral lower extremity edema that started about one day prior to admission, right greater than left.? He denies history of this in the past and denies history of CHF.? He had a bypass performed in 2012.? He is on amiodarone for ?irregular heartbeat?, however has not had his defibrillator activated many years.? He denies fever, abdominal pain, nausea, vomiting, diarrhea, diaphoresis, syncope.? He does endorse palpitations with states these are not abnormal for him believes they are secondary to PVCs.? Patient does state that he smoked approximately 1 pack per day for 25-30 years.?? States he was told at one point he had COPD, however was felt by his scientific editor he does not have COPD. ED work-up reveals:? CBC without leukocytosis, hemoglobin is 12.3 slightly decreased from prior study history of anemia, denies melena or hematochezia, MCV normal, mild ALT elevation 77, all other LFTs are normal, lipase normal no tenderness on exam negative Montejo's sign, low suspicion for cholecystitis, CTA chest? shows no evidence of PE. CT revealed? small pleural effusion and cardiomegaly Interval Hx: 07/18/2023: Pt seen this am, family is by the bedside, pt reports he is feeling much better, he denies any SOB, chest pain, n/v at t
[2023-07-18] MEDS: AMIODARONE HCL 200 MG TABLET PO (11:22)
[2023-07-18] MEDS: ATORVASTATIN 40 MG TABLET 80 MG PO (11:23)
[2023-07-18] MEDS: ASPIRIN 81 MG ENTERIC TABLET PO (11:23)
[2023-07-18] MEDS: FUROSEMIDE 40 MG TABLET PO (11:26)
[2023-07-18] MEDS: MEXILETINE HCL 150 MG CAPSULE PO ×3 (11:26→17:24)
[2023-07-18] MEDS: SPIRONOLACTONE 25 MG TABLET PO (11:27)
[2023-07-18] MEDS: METOPROLOL SUCCINATE EXT REL 50 MG TABCR 100 MG PO (11:27)
[2023-07-18] MEDS: SACUBITRIL/VALSARTAN 24-26 MG TABLET 1 TAB PO ×2 (11:27→21:49)
[2023-07-18] MEDS: ENTER PT HEIGHT XX (11:52)
--- NOTE | 2023-07-18 11:56 | PM.PNCARD ---
Progress Note: A&P Assessment and Plan (1) CHF exacerbation: Code(s): I50.9 - Heart failure, unspecified Status: Acute (2) Ischemic cardiomyopathy: Code(s): I25.5 - Ischemic cardiomyopathy Status: Acute Plan This is a 73-year-old man with chronic coronary artery disease and chronic ischemic cardiomyopathy. Had previously been difficult to treat with low blood pressure. Yesterday started initial doses of Entresto and spironolactone. He was on no diuretic of any kind prior to coming in the hospital. He is very happy with his initial response to medical therapy. I am going to continue the current CHF regimen and for the time being I will stop furosemide as he was on none of this prior coming to coming in the hospital and we should try to avoid over-diuresis and a pre renal state. It may well be necessary to resume some furosemide as we go along but for now the addition of Entresto and spironolactone may be sufficient to prevent been effectively manage his volume status. I would keep him in the hospital at least until tomorrow and hopefully if he is doing well he can be discharged for follow-up in the outpatient setting which is already scheduled with Dr. Lai Medina MD [facility] Subjective Date/time seen: Date of service: 07/18/23 11:56 Interval history: Follow-up visit in this 73-year-old man with: Coronary artery disease and severe chronic ischemic cardiomyopathy. Patient feels much better today terms of his energy levels and shortness of breath. Started on Entresto and spironolactone yesterday for his cardiomyopathy. He has had no hypotension thus far. Exam Const: General: comfortable and no acute distress Other: Pleasant elderly man no distress HENMT: Mouth: Yes moist mucous membranes Eyes: Sclera: sclerae normal Neck: Neck: supple Other: No significant venous distention at this time Resp: Effort & Inspection: normal respiratory effort Other: Breath sounds with minimal crackles otherwise basically clear today Cardio: Rate: regular rate Rhythm: regular rhythm Other: PMI laterally displaced no gallop GI: GI Palp: Yes Soft to palpation Auscultation: normal bowel sounds Skin: General skin exam: normal color Neuro: Other: Alert and oriented x3 Extrem: General: normal to inspection Objective Data Vital Signs Vital Signs: Vital Signs - 24 hr 07/17/23 14:03 07/17/23 14:45 07/17/23 12:00 Temperature 36.9 C Pulse Rate 80 80 80 Respiratory Rate 17 Blood Pressure 114/74 Pulse Oximetry 100 Oxygen Delivery 07/17/23 16:00 07/17/23 17:27 07/17/23 20:30 Temperature 36.3 C L Pulse Rate 84 84 88 Respiratory Rate 18 Blood Pressure 140/89 Pulse Oximetry 100 Oxygen Delivery 07/17/23 20:45 07/17/23 20:00 07/18/23 00:00 Temperature Pulse Rate 83 80 Respiratory Rate Blood Pressure Pulse Oximetry Oxygen Delivery Room Air 07/18/23 04:00 07/18/23 05:04 07/18/23 11:22 Temperature 36.4 C Pulse Rate 88 105 H 105 H Respiratory Rate 18 Blood Pressure 105/60 Pulse Oximetry 99 Oxygen Delivery 07/18/23 11:26 07/18/23 11:27 Temperature Pulse Rate 105 H 105 H Respiratory Rate Blood Pressure Pulse Oximetry Oxygen Delivery Intake/Output Intake/Output: Intake & Output 07/15/23 07/16/23 07/17/23 07/18/23 23:59 23:59 23:59 23:59 Intake Total 1820 360 Output Total 3400 600 Balance -1580 -240 Meds/Results Medications: Active Medications Generic Name Dose Route Start Last Admin Trade Name Zenobia PRN Reason Stop Dose Admin Amiodarone HCl 200 mg 07/17/23 09:55 07/18/23 11:22 Amiodarone Hcl 200 Mg Tablet PO 200 mg DAILY KIMBERLY Administration Aspirin 81 mg 07/17/23 09:55 07/18/23 11:23 Aspirin 81 Mg Enteric Tablet PO 81 mg DAILY KIMBERLY Administration Atorvastatin Calcium 80 mg 07/17/23 09:55 07/18/23 11:23 Atorvastatin 4
[2023-07-18 12:08] LABS: Glucose Point of Care 116 mg/dl (65-105)
[2023-07-18 12:50] LABS: NT Pro B Type Natriuretic Pept 9150 pg/mL (19.9-100)
--- NOTE | 2023-07-18 14:04 | ECHO_ITS ---
Patient Info Name: Dre Franco Age: 73 years : 1950 Gender: Male Ht: 69 in Wt: 168 lbs BSA: 1.93 m2 HR: 83 bpm BP: 105 / 60 mmHg Heart Rhythm: Sinus Rhythm, Paced Technical Quality: Good Exam Date: 07/18/2023 9:05 AM Exam Location: Echo Lab Patient Status: Outpatient Admit Date: 07/17/2023 Staff Ordering Physician: Zonia Dove APRN Team Manager: Royal Guerrero RDCS Attending Provider: Xander Almanza MD Referring Physician: Derrell MORALES; Exam Type: CA echo doppler color flow Study Info Indications - sob, chf Complete two-dimensional, color flow and Doppler transthoracic echocardiogram is performed. Summary 1. Complete two-dimensional, color flow and Doppler transthoracic echocardiogram is performed. 2. Severe left ventricular enlargement with severely reduced systolic contractility. 3. Dilated left atrium. 4. Mild mitral regurgitation resulting from annular dilation. 5. Sclerotic aortic valve with good leaflet excursion/no stenosis. 6. Pacemaker/ICD lead identified. 7. Small amounts of mitral, aortic and pulmonic regurgitation. Left Ventricle Left ventricular chamber dimension is severely enlarged. Left ventricular systolic function is severely reduced, estimated at 20-25%. The left ventricular diastolic function is abnormal. Right Ventricle Right ventricular chamber dimension is mildly enlarged. Right ventricular systolic function is reduced. Left Atria Left atrial chamber dimension is severely enlarged. Right Atria Right atrial chamber dimension is mildly enlarged. Aortic Valve The aortic valve is trileaflet. There is mild aortic valve sclerosis. There is trace aortic valve regurgitation. Pulmonic Valve The pulmonic valve is normal. There is mild pulmonic regurgitation. Mitral Valve The mitral valve has normal leaflets. There is mild mitral valve regurgitation. Tricuspid Valve The tricuspid valve leaflets are normal. Pericardium/Pleural The pericardium appears normal. Aorta The aortic root size at the sinus of Valsalva is normal. Left Ventricular Outflow Tract Name Value Normal LVOT 2D LVOT Diameter 2.8 cm LVOT Doppler LVOT Peak Gradient 2 mmHg LVOT Mean Gradient 1 mmHg LVOT VTI 16 cm LVOT VTI/AV VTI Ratio 0.8 LVOT Stroke Volume 99 ml LVOT CO 6.7 l/min LVOT CI 3.5 l/min/m2 Pulmonic Valve Name Value Normal RVOT Doppler RVOT Peak Gradient 1 mmHg PV Doppler PV Peak Gradient 1 mmHg Mitral Valve Name Value Normal
[2023-07-18 17:20] LABS: Glucose Point of Care 120 mg/dl (65-105)
[2023-07-18 20:48] LABS: Glucose Point of Care 128 mg/dl (65-105)
[2023-07-19] VITALS (15 sets, daily range): BP systolic 88–122; BP diastolic 50–75; PULSE 80–103; RESP 16–20; TEMP 36.1–36.8; O2SAT 97–100
[2023-07-19 00:13] LABS: Glucose Point of Care 99 mg/dl (65-105)
[2023-07-19 04:02] LABS: Glucose Point of Care 108 mg/dl (65-105)
[2023-07-19 05:23] LABS: Basophils Absolute Auto 0.1 K/mm3 (0.0-0.1); Basophils Percent Auto 1.3 % (0.2-1.2); Eosinophils Absolute Auto 0.3 K/mm3 (0-0.3); Eosinophils Percent Auto 3.5 % (0-4.4); Hematocrit 37.7 % (42.0-52.0); Hemoglobin 11.7 g/dL (14.0-18.0); Immature Granulocyte Absolute 0.06 K/mm3 (0.00-0.031); Immature Granulocyte Percent A 0.8 % (0-0.5); Lymphocytes Absolute Auto 1.53 K/mm3 (0.9-3.2); Lymphocytes Percent Auto 19.2 % (18.3-44.2); Mean Corpuscular Hemoglobin 27.9 pg (26-34); Mean Platelet Volume 10.6 fl (7.4-10.4); Monocytes Absolute Auto 0.8 K/mm3 (0.1-0.6); Monocytes Percent Auto 10.6 % (2.6-8.5); Neutrophils Absolute Auto 5.1 K/mm3 (1.3-6.7); Neutrophils Percent Auto 64.6 % (45.5-73.1); Platelet Count Result 284 k/mm3 (150-375); Red Blood Count 4.19 M/mm3 (4.6-6.20)
[2023-07-19 05:38] LABS: Alanine Aminotransferase 70 U/L (6-50); Albumin Level 2.8 g/dL (3.5-5.1); Alkaline Phosphatase 80 U/L (38-126); Anion Gap 4 mmol/L (8-16); Aspartate Amino Transferase 51 U/L (17-59); Bilirubin,Total 0.6 mg/dL (0.2-1.3); Blood Urea Nitrogen 18 mg/dL (9-20); Carbon Dioxide 30 mmol/L (22-30); Chloride 103 mmol/L (98-107); Estimated CRCL calculation 43 ml/min; Estimated Glomerular Filt Rate 50; Glucose 101 mg/dL (65-110); Potassium 3.8 mmol/L (3.4-5.0); Sodium 137 mmol/L (137-145)
--- NOTE | 2023-07-19 07:11 | ECG_ITS ---
Measurements Intervals [place] Rate: 98 P: 111 [place]: 75 QRS: 247 QRSD: 267 T: 41 QT: 518 QTc: 663 Interpretive Statements SINUS OR ECTOPIC ATRIAL RHYTHM MARKED RIGHT AXIS DEVIATION RIGHT BUNDLE BRANCH BLOCK INFERIOR INFARCT, AGE INDETERMINATE ST-T WAVE ABNORMALITY IN ANTEROSEPTAL LEADS- CONSIDER ISCHEMIA BASELINE ARTIFACT- I, II, III, V1 ABNORMAL ECG COMPARED TO ECG 07/18/2023 10:36:18 SINUS OR ECTOPIC ATRIAL RHYTHM NOW PRESENT RIGHT BUNDLE-BRANCH BLOCK NOW PRESENT MYOCARDIAL INFARCT FINDING NOW PRESENT Electronically Signed On 07-19-2023 8:19:30 COKE DRAWER HAND by Bora Mast D.O.
--- NOTE | 2023-07-19 07:46 | PM.IMPN ---
Progress Note: A&P Assessment and Plan (1) Type 2 diabetes mellitus with hyperglycemia: Qualifiers: Diabetes mellitus exterminator insulin use: without exterminator use Qualified Code(s): E11.65 - Type 2 diabetes mellitus with hyperglycemia Code(s): E11.65 - Type 2 diabetes mellitus with hyperglycemia Status: Acute Assessment and Plan: pt does not take home insulin last A1C, 07/18/2023 is 6.1 - continue bedside glucose management q 4 hrs (2) Mixed hyperlipidemia: Code(s): E78.2 - Mixed hyperlipidemia Status: Acute Assessment and Plan: -continue home medication (3) Essential (primary) hypertension: Code(s): I10 - Essential (primary) hypertension Status: Acute Assessment and Plan: Chronic continue home medication (4) CHF exacerbation: Code(s): I50.9 - Heart failure, unspecified Status: Acute Assessment and Plan: pt denies any chest pain this a.m, EKG was performed, suggested acute changes -spoke with poll clerk 0720, pt is asymptomatic, will not run troponin per poll clerk continue with medication regime -cards will see pt this am -continue telemetry monitoring -continue daily weights -consult cardiology appreciate recommendation and plan -continue home medications -oxygen titration therapy maintain SpO2 above 93% -fluid restriction Plan Continue home medications: -ASA 81 mg daily -atorvastatin 80 mg daily -furosemide 40 mg p.o. -metoprolol succinate 100 mg p.o. daily -Mexiletine HCI 150 mg p.o. t.i.d. -amiodarone 200 mg p.o. daily VTE Prophylaxis: Enoxaparin subQ, patient refusing enoxaparin, will increase ASA to 325 DIET: Heart healthy diet Anticipated hospital stay: > 2 days Code Status: Full code Subjective Date/time seen: 07/19/23 07:46 Interval history: 73-year-old male with history of type 2 diabetes, hyperlipidemia, ischemic cardiomyopathy with a pacemaker and defibrillator in place since 2012, hypertension, CKD stage 4, pulmonary fibrosis, ascending aortic aneurysm reports to the emergency department for evaluation for right-sided pleuritic chest pain. Narrative: ?HPI provided by pt who reports left side? chest pain that started? about 3-4 days ago, now has moved to the right side for the past 2 days.? States he had some right shoulder pain a few days ago,that has since resolved, he denies any recent falls or trauma,?he otherwise denies radiating pain or symptoms, aggravating or alleviating factors beyond deep inspiration.? Patient reports a positive COVID test? on 06/05/2024, he reports seeing his PCP on 07/09/2023 for shortness of breath, worse on exertion, pt reports being started on Augmentin for secondary pneumonia.? He reports persistent dyspnea, especially on exertion. The patient is also reporting bilateral lower extremity edema that started about one day prior to admission, right greater than left.? He denies history of this in the past and denies history of CHF.? He had a bypass performed in 2012.? He is on amiodarone for ?irregular heartbeat?, however has not had his defibrillator activated many years.? He denies fever, abdominal pain, nausea, vomiting, diarrhea, diaphoresis, syncope.? He does endorse palpitations with states these are not abnormal for him believes they are secondary to PVCs.? Patient does state that he smoked approximately 1 pack per day for 25-30 years.?? States he was told at one point he had COPD, however was felt by his poll clerk he does not have COPD. ED work-up reveals:? CBC without leukocytosis, hemoglobin is 12.3 slightly decreased from prior study history of anemia, denies melena or hematochezia, MCV normal, mild ALT elevation 77, all other LFTs are normal, lipase normal no tenderness on exam negative Montejo's sign, low suspicion for cholecystitis, CTA chest? shows no evidence of PE. CT revealed? small pleural effusion and cardiomegaly Interval Hx: 07/18/2023: Pt seen this am, family is by th
[2023-07-19 07:53] LABS: Glucose Point of Care 96 mg/dl (65-105)
[2023-07-19] MEDS: ASPIRIN 325 MG ENTERIC TABLET PO (08:24)
[2023-07-19] MEDS: AMIODARONE HCL 200 MG TABLET PO (08:24)
[2023-07-19] MEDS: SPIRONOLACTONE 25 MG TABLET PO (08:25)
[2023-07-19] MEDS: MEXILETINE HCL 150 MG CAPSULE PO ×3 (08:25→16:58)
[2023-07-19] MEDS: SACUBITRIL/VALSARTAN 24-26 MG TABLET 1 TAB PO ×2 (08:25→20:52)
[2023-07-19] MEDS: METOPROLOL SUCCINATE EXT REL 50 MG TABCR 100 MG PO (08:26)
[2023-07-19 12:02] LABS: Glucose Point of Care 104 mg/dl (65-105)
[2023-07-19 15:58] LABS: Glucose Point of Care 111 mg/dl (65-105)
[2023-07-19 18:05] LABS: Glucose Point of Care 139 mg/dl (65-105)
[2023-07-19 20:56] LABS: Glucose Point of Care 120 mg/dl (65-105)
[2023-07-20] VITALS (7 sets, daily range): BP systolic 104; BP diastolic 67; PULSE 79–86; RESP 17–18; TEMP 36.6; O2SAT 98
[2023-07-20 05:28] LABS: Basophils Absolute Auto 0.1 K/mm3 (0.0-0.1); Basophils Percent Auto 1.2 % (0.2-1.2); Eosinophils Absolute Auto 0.2 K/mm3 (0-0.3); Eosinophils Percent Auto 3.2 % (0-4.4); Hematocrit 36.6 % (42.0-52.0); Hemoglobin 11.4 g/dL (14.0-18.0); Immature Granulocyte Absolute 0.07 K/mm3 (0.00-0.031); Immature Granulocyte Percent A 0.9 % (0-0.5); Lymphocytes Absolute Auto 1.36 K/mm3 (0.9-3.2); Lymphocytes Percent Auto 17.9 % (18.3-44.2); Mean Corpuscular HGB Conc 31.1 g/dl (32-36); Mean Corpuscular Hemoglobin 28.1 pg (26-34); Mean Corpuscular Volume 90.1 fl (80-100); Monocytes Absolute Auto 0.8 K/mm3 (0.1-0.6); Monocytes Percent Auto 10.1 % (2.6-8.5); Neutrophils Absolute Auto 5.1 K/mm3 (1.3-6.7); Neutrophils Percent Auto 66.7 % (45.5-73.1); Platelet Count Result 316 k/mm3 (150-375); Red Blood Count 4.06 M/mm3 (4.6-6.20); Red Cell Distribution Width 14.1 % (11.5-14.5); White Blood Count 7.6 K/mm3 (4.5-10.0)
[2023-07-20 05:31] LABS: Alanine Aminotransferase 73 U/L (6-50); Albumin Level 2.8 g/dL (3.5-5.1); Alkaline Phosphatase 84 U/L (38-126); Anion Gap 5 mmol/L (8-16); Aspartate Amino Transferase 54 U/L (17-59); Bilirubin,Total 0.6 mg/dL (0.2-1.3); Blood Urea Nitrogen 19 mg/dL (9-20); Carbon Dioxide 28 mmol/L (22-30); Chloride 103 mmol/L (98-107); Estimated CRCL calculation 43 ml/min; Estimated Glomerular Filt Rate 50; Glucose 96 mg/dL (65-110); Potassium 3.7 mmol/L (3.4-5.0); Sodium 136 mmol/L (137-145)
[2023-07-20 07:26] LABS: Glucose Point of Care 97 mg/dl (65-105)
[2023-07-20] MEDS: SACUBITRIL/VALSARTAN 24-26 MG TABLET 1 TAB PO (08:11)
[2023-07-20] MEDS: SPIRONOLACTONE 25 MG TABLET PO (08:11)
[2023-07-20] MEDS: AMIODARONE HCL 200 MG TABLET PO (08:11)
[2023-07-20] MEDS: ASPIRIN 325 MG ENTERIC TABLET PO (08:11)
[2023-07-20] MEDS: METOPROLOL SUCCINATE EXT REL 50 MG TABCR 100 MG PO (08:11)
[2023-07-20] MEDS: MEXILETINE HCL 150 MG CAPSULE PO (08:12)
--- NOTE | 2023-07-20 09:33 | PM.PNCARD ---
Progress Note: A&P Assessment and Plan (1) CHF exacerbation: Code(s): I50.9 - Heart failure, unspecified Status: Acute Assessment and Plan: Compensated (2) Ischemic cardiomyopathy: Code(s): I25.5 - Ischemic cardiomyopathy Status: Acute Assessment and Plan: Seems to be tolerating medications. Blood pressure is soft at times but he is asymptomatic. Continue current doses of medications including metoprolol, Entresto, spironolactone. Renal function today shows a creatinine 1.4 Reasonable for discharge today. Subjective Date/time seen: 07/20/23 09:33 Interval history: Follow-up visit in this 73-year-old man with: Coronary artery disease and severe chronic ischemic cardiomyopathy. Date of service 07/20/2023: Patient feels great. No chest pain. No shortness of breath. Review of Systems Constitutional: Constitutional: Reports lethargy Eyes: Eyes: Reports no additional eye complaints ENT: Reports system reviewed and no additional complaints, except as documented Cardiovascular: Cardiovascular: Reports as per HPI and Reports dyspnea on exertion Respiratory: Respiratory: Reports dyspnea on exertion Gastrointestinal: Gastrointestinal: Reports no additional gastrointestinal complaints Musculoskeletal: Musculoskeletal: Reports no additional musculoskeletal complaints Integumentary/Breasts: Skin/Breast: Reports system reviewed and no additional complaints, except as docu Neurologic: Reports system reviewed and no additional complaints, except as documented Endocrine: Endocrine: Reports no additional endocrine complaints Hematologic/Lymphatic: Hematologic/Lymphatic: Reports no additional hematologic/lymphatic complaints Allergic/Immunologic: Allergic/Immunologic: Reports no additional allergic/immunologic complaints Exam Const: General: comfortable and no acute distress Other: Pleasant elderly man no distress HENMT: Mouth: Yes moist mucous membranes Eyes: Sclera: sclerae normal Pupils: Equal, round and reactive pupils present Neck: Neck: supple Other: No significant venous distention at this time Resp: Effort & Inspection: normal respiratory effort Other: Breath sounds with minimal crackles otherwise basically clear today Cardio: Rate: regular rate Rhythm: regular rhythm Other: PMI laterally displaced no gallop GI: Auscultation: normal bowel sounds Skin: General skin exam: normal color Neuro: Cranial nerves: Yes Equal, round and reactive pupils present Other: Alert and oriented x3 Extrem: General: normal to inspection Other: Well perfused currently there is no edema Objective Data Vital Signs Vital Signs: Vital Signs - 24 hr 07/19/23 12:40 07/19/23 12:00 07/19/23 13:58 Temperature 36.1 C L Pulse Rate 89 96 81 Respiratory Rate 20 Blood Pressure 88/58 L Pulse Oximetry 99 Oxygen Delivery 07/19/23 16:00 07/19/23 16:58 07/19/23 20:56 Temperature 36.4 C L Pulse Rate 95 80 85 Respiratory Rate 17 Blood Pressure 122/74 Pulse Oximetry 100 Oxygen Delivery 07/19/23 20:00 07/20/23 00:00 07/20/23 04:00 Temperature Pulse Rate 94 86 81 Respiratory Rate Blood Pressure Pulse Oximetry Oxygen Delivery 07/20/23 05:46 07/20/23 07:53 07/20/23 08:11 Temperature 36.6 C Pulse Rate 79 84 Respiratory Rate 17 18 Blood Pressure 104/67 Pulse Oximetry 98 98 Oxygen Delivery Room Air 07/20/23 08:11 07/20/23 08:12 07/20/23 08:03 Temperature Pulse Rate 84 84 84 Respiratory Rate Blood Pressure Pulse Oximetry Oxygen Delivery Intake/Output Intake/Output: Intake & Output 07/17/23 07/18/23 07/19/23 07/20/23 23:59 23:59 23:59 23:59 Intake Total 4197 310 2928 400 Output Total 3400 1100 1600 1200 Balance -1580 -200 640 -800 Meds/Results Medications: Active Medications Generic Name Dose Route Start Last Admin Trade Name Zenobia SCHUMACHER
--- NOTE | 2023-07-20 10:19 | PM.DS ---
DS: Admitting Diagnosis Discharge Date 07/20/23 Admitting Diagnosis CHF exacerbation DS: Discharge Diagnosis Discharge Diagnosis (1) Type 2 diabetes mellitus with hyperglycemia: Qualifiers: Diabetes mellitus ocean transportation intermediary insulin use: without ocean transportation intermediary use Qualified Code(s): E11.65 - Type 2 diabetes mellitus with hyperglycemia Code(s): E11.65 - Type 2 diabetes mellitus with hyperglycemia Status: Acute (2) Mixed hyperlipidemia: Code(s): E78.2 - Mixed hyperlipidemia Status: Acute (3) Essential (primary) hypertension: Code(s): I10 - Essential (primary) hypertension Status: Acute (4) CHF exacerbation: Code(s): I50.9 - Heart failure, unspecified Status: Acute DS: Summary Hospital Course Hospital Course: This is a 73-year-old male with a past medical history of type 2 diabetes, ischemic cardiomyopathy with pacemaker and defibrillator, hyperlipidemia, CKD, AAA, and pulmonary fibrosis presents to the ED on 07/16/2023 due to left-sided chest pain that developed 3-4 days prior to presentation. Patient did have COVID in May and when his symptoms started he saw his PCP which put him on Augmentin for pneumonia but this did not improve his symptoms. He also had lower extremity edema. Patient's BNP was found to be 10,000 he was admitted for CHF workup. Cardiology was consulted. Patient was started on Entresto And spironolactone and he was monitored while he was here for a couple days. Patient did well on this medication. his blood pressure was soft at times but he was asymptomatic with this. Recommend follow-up with Cardiology. Patient's labs and vital signs are stable and he is medically clear for discharge at this time. Time Spent with Patient Time attestation: Total time spent providing and/or coordinating discharge services: Exam Narrative: GENERAL: Comfortable, no acute distress HENMT: moist mucous membranes EYES: EOM intact b/l NECK: no lymphadenopathy RESPIRATORY: clear to auscultation CARDIO: RRR GI: soft, nontender, bowel sounds present SKIN: no rashes EXTREMITIES: no edema, redness or tenderness DS: Data Data Completed and Pending Labs on day of discharge: Labs from last 24 hours 07/20/23 07/20/23 07/19/23 07:23 04:49 20:51 WBC 7.6 RBC 4.06 L Hgb 11.4 L Hct 36.6 L MCV 90.1 MCH 28.1 MCHC 31.1 L RDW 14.1 Plt Count 316 MPV 11.0 H Immature Gran % (Auto) 0.9 H Neut % (Auto) 66.7 Lymph % (Auto) 17.9 L [place] % (Auto) 10.1 H Eos % (Auto) 3.2 Baso % (Auto) 1.2 Lymph # (Auto) 1.36 [place] # (Auto) 0.8 H Eos # (Auto) 0.2 Baso # (Auto) 0.1 Abs Immat Gran (auto) 0.07 H Absolute Neuts (auto) 5.1 Absolute Nucleated RBC 0.0 Nucleated RBC % 0.0 Sodium 136 L Potassium 3.7 Chloride 103 Carbon Dioxide 28 Anion Gap 5 L BUN 19 Creatinine 1.40 H Estim Creat Clear Calc 43 Estimated GFR 50 L Glucose 96 POC Capillary Glucose 97 120 H Calcium 8.0 L Total Bilirubin 0.6 AST 54 ALT 73 H Alkaline Phosphatase 84 Total Protein 5.0 L Albumin 2.8 L 07/19/23 07/19/23 07/19/23 18:01 15:55 11:57 WBC RBC Hgb Hct MCV MCH MCHC RDW Plt Count MPV Immature Gran % (Auto) Neut % (Auto) Lymph % (Auto) [place] % (Auto) Eos % (Auto) Baso % (Auto) Lymph # (Auto) [place] # (Auto) Eos # (Auto) Baso # (Auto) Abs Immat Gran (auto) Absolute Neuts (auto) Absolute Nucleated RBC Nucleated RBC % Sodium Potassium Chloride Carbon Dioxide Anion Gap BUN Creatinine Estim Creat Clear Calc Estimated GFR Glucose POC Capillary Glucose 139 H 111 H 104 Calcium Total Bilirubin AST ALT Alkaline Phosphatase Total Protein Albumin Discharge Plan Discharge Attending physician on discharge: Blaine Del Cid
[2023-07-20 11:49] LABS: Glucose Point of Care 121 mg/dl (65-105)
== END 2023-07-20 12:00 | disposition home or self-care (01) | DRG 292 ==
LOC: ANHED 07-17 01:18 → ANH2MED 07-17 02:50
PROVIDERS: Nurse Practitioner; Admitting Provider Internal Medicine; Emergency Provider Physician Assistant; PCP Family Medicine; Visit Provider Internal Medicine Critical Care Medicine
DX: I13.0 Hypertensive heart and chronic kidney disease with heart failure and stage 1 through stage 4 chronic kidney disease, or unspecified chronic kidney disease (principal); N18.4 Chronic kidney disease, stage 4 (severe); I50.9 Heart failure, unspecified; E11.22 Type 2 diabetes mellitus with diabetic chronic kidney disease; I25.5 Ischemic cardiomyopathy; I25.10 Atherosclerotic heart disease of native coronary artery without angina pectoris; E11.65 Type 2 diabetes mellitus with hyperglycemia; E78.2 Mixed hyperlipidemia; Z95.810 Presence of automatic (implantable) cardiac defibrillator; Z86.16 Personal history of COVID-19; Z87.891 Personal history of nicotine dependence; Z79.82 Long term (current) use of aspirin
CPT/HCPCS: 36415; 71275; 80053; 81003; 82948; 83036; 83690; 83880; 84484; 85025; 85610; 85730; 86850; 86900; 86901; 93005; 93306; 93970; 96374; 97161; 99285; A9270; G0378; J1940; Q9967

== ENCOUNTER 2023-08-28 11:07 | Inpatient (IN) | payer MEDICARE, OTHER, SELFPAY ==
[2023-08-28] VITALS (13 sets, daily range): BP systolic 94–111; BP diastolic 59–90; PULSE 80–95; RESP 16–19; TEMP 35.1–36.6; O2SAT 95–100; BMI 24.4
--- NOTE | ~2023-08-28 | XR_ITS ---
EXAMINATION: XR chest 1V portable INDICATION: Shortness of breath with exertion TECHNIQUE: Portable AP chest at 1942 hours COMPARISON: 05/08/2020 FINDINGS: Cardiomegaly is noted. The lungs are free of acute opacities. There are small pleural effus ions. There is no pneumothorax. A dual-lead cardiac pacemaker of the left chest wall ends with leads in expected locations. Median sternotomy wires and mediastinal surgical clips are seen, likely from p rior coronary artery bypass grafting. IMPRESSION: 1. Cardiomegaly. 2. Small pleural effusions. Reviewed, dictated and finalized at location [address] MAGISTRATE
--- NOTE | 2023-08-28 11:31 | ED.GENADULT ---
HPI - General Adult General Chief complaint: Arrhythmia/Palpitations Stated complaint: Racing HR Time Seen by Provider: 08/28/23 11:18 History of Present Illness HPI narrative: 73-year-old male presenting to the emergency department for evaluation generalized weakness and shortness breath over the course of the last week. Patient does have a pacemaker defibrillator and patient does follow-up with Dr. Hoyt. Patient had follow-up with Dr. Leroy yesterday and patient was started on digoxin. Patient got a call from his snagger at [facility] and was told to present to the emergency department. Patient states that he did not feel his defibrillator fire. Patient denies any recent or current chest pain. Patient denies any recent fevers but has had a persistent cough. Patient was started on digoxin yesterday Related Data Home Medications Medication Instructions Recorded Confirmed amiodarone 200 mg tablet 200 mg PO QPM 11/22/19 08/28/23 aspirin 81 mg tablet,delayed 81 mg PO QAM 11/22/19 08/28/23 release mexiletine 150 mg capsule 150 mg PO 0900,1500,2100 06/03/22 08/28/23 atorvastatin 80 mg tablet 80 mg PO QAM 12/05/22 08/28/23 metoprolol succinate 50 mg 100 mg PO QAM 12/05/22 08/28/23 tablet,extended release 24 hr Allergies Allergy/AdvReac Type Severity Reaction Status Date / Time No Known Allergies Allergy Verified 07/09/23 13:15 Review of Systems Review of Systems: 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) Coronary artery disease Essential (primary) hypertension History of nicotine dependence Ischemic cardiomyopathy Mixed hyperlipidemia Pulmonary fibrosis Restless legs syndrome Type 2 diabetes mellitus with hyperglycemia Family History Family History Sibling Cerebrovascular accident Mother Diabetes mellitus Hypertension Father History of blood clots Hypertension Social History Social History Smoking packs per day: 1 Smoking cigarettes per day: 20.0 Years smoked: 35 Smoking pack-years: 35.00 Smoking status: Former smoker Second hand tobacco smoke exposure: Yes Additional smoking assessment comments: former heavy smoker, quit 25 years ago. Alcohol intake: never Substance use: never Substance use type: does not use Do You Feel Safe in your Home?: Yes Lack of Transportation: No Lack of Food: Never True Current Housing: I Have Housing Concerned About Future Housing: No Difficulty Paying Gas/Electric Bills: No Difficulty Paying for Meds: No Currently Unemployed: No Education: Bachelor's Degree Difficulty w/ Childcare or Family Care: No Living arrangements: with family Additional living arrangements comments: Pt lives with his Occupation/Education: retired Gender identity (if verbalized by the patient): Male Sexual Orientation (if Verbalized by the Patient): Straight or Heterosexual Spiritual care concerns: No Exam Narrative: APPEARANCE: Well appearing, no pain, no distress, well-nourished. HEAD: normocephalic, atraumatic. EYES: PERRLA/EOMI, conjunctivae clear. NOSE: Normal no drainage EARS:TMS clear with good light reflex. THROAT: Pharynx clear, no exudate. NECK: Supple. No adenopathy, no masses. RESPIRATORY: Airway patent, respirations nonlabored. Clear to auscultation bilaterally, no rales, rhonchi, wheezing. CARDIOVASCULAR: Wide complex arrhythmia ABDOMINAL: Soft, nontender, nondistended, normal bowel sounds MUSCULOSKELETAL: Moves all extremities. Strength/ROM intact, No edema, No calf tenderness. NE
[2023-08-28 11:33] LABS: Basophils Absolute Auto 0.1 K/mm3 (0.0-0.1); Eosinophils Absolute Auto 0.2 K/mm3 (0-0.3); Eosinophils Percent Auto 1.9 % (0-4.4); Hematocrit 45.1 % (42.0-52.0); Hemoglobin 13.7 g/dL (14.0-18.0); Immature Granulocyte Absolute 0.04 K/mm3 (0.00-0.031); Immature Granulocyte Percent A 0.5 % (0-0.5); Lymphocytes Absolute Auto 1.34 K/mm3 (0.9-3.2); Lymphocytes Percent Auto 17.1 % (18.3-44.2); Mean Corpuscular HGB Conc 30.4 g/dl (32-36); Mean Corpuscular Hemoglobin 27.8 pg (26-34); Mean Corpuscular Volume 91.7 fl (80-100); Mean Platelet Volume 11.6 fl (7.4-10.4); Monocytes Absolute Auto 0.7 K/mm3 (0.1-0.6); Monocytes Percent Auto 9.3 % (2.6-8.5); Neutrophils Absolute Auto 5.5 K/mm3 (1.3-6.7); Neutrophils Percent Auto 70.2 % (45.5-73.1); Platelet Count Result 217 k/mm3 (150-375); Red Blood Count 4.92 M/mm3 (4.6-6.20); Red Cell Distribution Width 15.3 % (11.5-14.5); White Blood Count 7.8 K/mm3 (4.5-10.0)
[2023-08-28 11:40] LABS: Alanine Aminotransferase 109 U/L (6-50); Albumin Level 4.1 g/dL (3.5-5.1); Alkaline Phosphatase 75 U/L (38-126); Anion Gap 5 mmol/L (8-16); Aspartate Amino Transferase 72 U/L (17-59); Bilirubin,Total 0.8 mg/dL (0.2-1.3); Blood Urea Nitrogen 25 mg/dL (9-20); Calcium 9.4 mg/dL (8.4-10.2); Carbon Dioxide 29 mmol/L (22-30); Chloride 103 mmol/L (98-107); Estimated CRCL calculation 34 ml/min; Estimated Glomerular Filt Rate 37; Glucose 119 mg/dL (65-110); Magnesium 2.1 mg/dL (1.6-2.3); Potassium 4.9 mmol/L (3.4-5.0); Sodium 137 mmol/L (137-145)
[2023-08-28 11:43] LABS: INR 1.1; Prothrombin Time 14.7 Seconds (11.1-14.7)
[2023-08-28 11:44] LABS: Partial Thromboplastin Time 30.1 SECONDS (22.3-36.8)
--- NOTE | 2023-08-28 11:52 | PC.NURSE ---
Jessica with [employer] called to report normal findings with interrogation
[2023-08-28 12:06] LABS: NT Pro B Type Natriuretic Pept 3440 pg/mL (19.9-100)
[2023-08-28 12:37] LABS: Influenza A QL RT-PCR Negative (Negative); Influenza B QL RT-PCR Negative (Negative); RSV RNA, RT-PCR Negative (Negative); SARS-CoV-2 RNA PCR Negative (Negative)
--- NOTE | 2023-08-28 12:41 | ECG_ITS ---
Measurements Intervals [place] Rate: 92 P: 171 DE: 134 QRS: 229 QRSD: 238 T: 11 QT: 420 QTc: 521 Interpretive Statements SINUS OR ECTOPIC ATRIALRHYTHM RIGHT AXIS DEVIATION RIGHT BUNDLE BRANCH BLOCK INFERIOR INFARCT, AGE INDETERMINATE ST-T WAVE ABNORMALITY IN ANTERSEPTAL LEADS- CONSIDER ISCHEMIA BASELINE ARTIFACT- I, II, AVR, AVL, AVF, V1-V3 ABNORMAL ECG COMPARED TO ECG 07/19/2023 07:11:34 NO SIGNIFICANT CHANGES Electronically Signed On 08-28-2023 12:59:31 MAILING MACHINE ASSISTANT by Bora Mast D.O.
[2023-08-28 13:24] LABS: Troponin I < 0.012 ng/mL (0.000-0.034)
--- NOTE | 2023-08-28 15:32 | PM.IMHP ---
H&P: HPI History of Present Illness Date/Time: 08/28/23 15:32 Chief Complaint: Abnormal EKG Narrative: 73 y/o M presents here for evaluation of an abnormal EKG with PMH of ascending aortic aneurysm, CKD, combined heart failure, CAD, HTN, ischemic cardiomyopathy, HLD, pulmonary fibrosis, and RLS. If patient presented here for further evaluation of abnormal EKG after his biophysics teacher (Gerson MENDIOLA) reported this finding to him after they reviewed his outpatient EKG. Patient denied any chest pain, palpitations, AICD firing, fevers, body aches. Patient does report some ongoing exertional dyspnea, has somewhat progressed over the last 2 weeks. Patient has been previously told this may be due to his congestive heart failure or due to his recent COVID infection in June. Patient denies any increased lower extremity swelling. Patient saw his congestive heart failure specialist, Rad MENDIOLA, yesterday and was started on digoxin 125 mg p.o. daily. Patient otherwise reports that he feels at his normal health. No other complaints. Initial VS at presentation: 98 F, HR 93, RR 18, 111/90, 98% on RA. ED workup showed no leukocytosis, no significant anemia, creatinine 1.8, troponin negative x2, BNP 3440 (reduced compared to previous), and viral PCR negative. CXR shows cardiomegaly and small pleural effusions. Small pleural effusions seen previously on chest CTA in June of 2023. [facility] Past Medical History Medical History (Updated 08/28/23 @ 20:43 by Mona Bernabe APRN) Actinic keratosis of scalp Ascending aortic aneurysm Bilateral carpal tunnel syndrome 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) Coronary artery disease Essential (primary) hypertension History of nicotine dependence Ischemic cardiomyopathy Mixed hyperlipidemia Pulmonary fibrosis Restless legs syndrome Surgical History Surgical History (Updated 08/28/23 @ 20:15 by Mona Bernabe APRN) History of cardiac pacemaker Family History Family History Sibling Cerebrovascular accident Mother Diabetes mellitus Hypertension Father History of blood clots Hypertension Social History Social History Smoking packs per day: 1 Smoking cigarettes per day: 20.0 Years smoked: 35 Smoking pack-years: 35.00 Smoking status: Former smoker Second hand tobacco smoke exposure: Yes Additional smoking assessment comments: former heavy smoker, quit 25 years ago. Alcohol intake: never Substance use: never Substance use type: does not use Do You Feel Safe in your Home?: Yes Lack of Transportation: No Lack of Food: Never True Current Housing: I Have Housing Concerned About Future Housing: No Difficulty Paying Gas/Electric Bills: No Difficulty Paying for Meds: No Currently Unemployed: No Education: Bachelor's Degree Difficulty w/ Childcare or Family Care: No Living arrangements: with family Additional living arrangements comments: Pt lives with his Occupation/Education: retired Gender identity (if verbalized by the patient): Male Sexual Orientation (if Verbalized by the Patient): Straight or Heterosexual Spiritual care concerns: No Meds Home Medications and Allergies Home Medications Medication Instructions Recorded Confirmed Type amiodarone 200 mg tablet 200 mg PO QPM 11/22/19 08/28/23 History aspirin 81 mg tablet,delayed 81 mg PO QAM 11/22/19 08/28/23 History release mexiletine 150 mg capsule 150 mg PO 0900,1500,2100 06/03/22 08/28/23 History atorvastatin 80 mg tablet 80 mg PO QAM 12/05/22 08/28/23 History metoprolol succinate 50 mg 100 mg PO QAM 12/05/22 08/28/23 History tablet,extended release 24 hr spironolactone 25 mg tablet 25 mg PO QAM #30 tabs 07/20/23 08/28/23 Rx digoxin 125 mcg (0.125 mg) tablet 125 mcg PO QAM 08/28/23 08/28/23 History
[2023-08-28] MEDS: AMIODARONE 150 MG/D5W 100 ML 150 MG/100 ML BAG 600 MG IV CONT (15:55)
[2023-08-28] MEDS: AMIODARONE 360 MG/D5W 200 ML 360 MG/200 ML BAG 33.33 MG IV CONT (16:05)
--- NOTE | 2023-08-28 16:05 | ADMGEN ---
This patient, Dre Franco, was admitted to IMU Room 203-01. Patient/family oriented to hospital policies and general routines including ID bracelet, bed and alarms, visiting hours, pain management, procedures, bathroom and other care routines, personal items, smoking policy, room service/diet, and visiting hours. Information on how to activate the Rapid Response Team has been discussed. Patient/Family are encouraged to report perceived risks to care and to ask questions if they do not understand what they are told or what they should do.
--- NOTE | 2023-08-28 17:17 | ECG_ITS ---
Measurements Intervals [place] Rate: 92 P: 117 WI: 135 QRS: 238 QRSD: 238 T: 31 QT: 462 QTc: 573 Interpretive Statements SINUS OR ECTOPIC ATRIAL RHYTHM RIGHT AXIS DEVIATION RIGHT BUNDLE BRANCH BLOCK INFERIOR INFARCT, AGE INDETERMINATE ST-T WAVE ABNORMALITY IN ANTEROSEPTAL LEADS- CONSIDER ISCHEMIA BASELINE ARTIFACT- I, III, AVR, AVL, AVF, V2 ABNORMAL ECG COMPARED TO ECG 08/28/2023 11:17:09 Electronically Signed On 08-28-2023 20:15:31 DIRECTOR OF HOUSING by Bora Mast D.O.
--- NOTE | 2023-08-28 17:30 | ECG_ITS ---
Measurements Intervals [place] Rate: 80 P: -78 WV: 102 QRS: -85 QRSD: 213 T: 77 QT: 487 QTc: 563 Interpretive Statements ELECTRONIC ATRIAL PACEMAKER ELECTRONIC VENTRICULAR PACEMAKER BASELINE ARTIFACT- I, II, III, AVR, AVL, AVF NO FURTHER INTERPRETATION IS POSSIBLE ATYPICAL ECG COMPARED TO ECG 08/28/2023 13:05:34 ELECTRONIC AV PACEMAKER NOW PRESENT Electronically Signed On 08-31-2023 7:39:25 REGISTERED MIDWIFE by Bora Mast D.O.
[2023-08-28 18:16] LABS: Cholesterol 113 mg/dL (0-200); HDL Direct 39 mg/dL
[2023-08-28 18:26] LABS: LDL Cholesterol Direct 63 mg/dL
[2023-08-28 19:51] LABS: Troponin I < 0.012 ng/mL (0.000-0.034)
[2023-08-28] MEDS: AMIODARONE 360 MG/D5W 200 ML 360 MG/200 ML BAG 16.67 MG IV CONT (21:39)
[2023-08-28] MEDS: LACTATED RINGERS 500 ML 100 ML IV CONT (21:39)
[2023-08-28] MEDS: MEXILETINE HCL 150 MG CAPSULE PO (21:40)
[2023-08-29] VITALS (16 sets, daily range): BP systolic 92–113; BP diastolic 66–90; PULSE 80–93; RESP 16–20; TEMP 36.2–36.4; O2SAT 99–100
[2023-08-29 05:07] LABS: Basophils Absolute Auto 0.1 K/mm3 (0.0-0.1); Basophils Percent Auto 0.8 % (0.2-1.2); Eosinophils Absolute Auto 0.1 K/mm3 (0-0.3); Eosinophils Percent Auto 1.8 % (0-4.4); Hematocrit 42.6 % (42.0-52.0); Immature Granulocyte Absolute 0.02 K/mm3 (0.00-0.031); Immature Granulocyte Percent A 0.3 % (0-0.5); Lymphocytes Absolute Auto 1.74 K/mm3 (0.9-3.2); Lymphocytes Percent Auto 22.5 % (18.3-44.2); Mean Corpuscular HGB Conc 30.5 g/dl (32-36); Mean Corpuscular Hemoglobin 28.3 pg (26-34); Mean Corpuscular Volume 92.6 fl (80-100); Mean Platelet Volume 12.4 fl (7.4-10.4); Monocytes Absolute Auto 0.8 K/mm3 (0.1-0.6); Monocytes Percent Auto 10.1 % (2.6-8.5); Neutrophils Percent Auto 64.5 % (45.5-73.1); Platelet Count Result 183 k/mm3 (150-375); Red Cell Distribution Width 15.2 % (11.5-14.5); White Blood Count 7.8 K/mm3 (4.5-10.0)
[2023-08-29 05:19] LABS: Alanine Aminotransferase 92 U/L (6-50); Albumin Level 3.5 g/dL (3.5-5.1); Alkaline Phosphatase 65 U/L (38-126); Anion Gap 6 mmol/L (8-16); Aspartate Amino Transferase 54 U/L (17-59); Bilirubin,Total 0.4 mg/dL (0.2-1.3); Blood Urea Nitrogen 24 mg/dL (9-20); Calcium 8.7 mg/dL (8.4-10.2); Carbon Dioxide 22 mmol/L (22-30); Chloride 106 mmol/L (98-107); Estimated CRCL calculation 38 ml/min; Estimated Glomerular Filt Rate 43; Glucose 104 mg/dL (65-110); Potassium 4.6 mmol/L (3.4-5.0); Sodium 134 mmol/L (137-145)
[2023-08-29] MEDS: ATORVASTATIN 40 MG TABLET 80 MG PO (08:43)
[2023-08-29] MEDS: MEXILETINE HCL 150 MG CAPSULE PO ×2 (08:43→15:03)
[2023-08-29] MEDS: SPIRONOLACTONE 25 MG TABLET PO (08:43)
[2023-08-29] MEDS: ASPIRIN 81 MG ENTERIC TABLET PO (08:44)
--- NOTE | 2023-08-29 09:15 | ECG_ITS ---
Measurements Intervals [place] Rate: 93 P: VT: 0 QRS: 247 QRSD: 243 T: 31 QT: 506 QTc: 630 Interpretive Statements SINUS OR ECTOPIC ATRIAL RHYTHM VENTRICULAR PREMATURE COMPLEX RIGHT AXIS DEVIATION RIGHT BUNDLE BRANCH BLOCK INFERIOR INFARCT, AGE INDETERMINATE ST-T WAVE ABNORMALITY IN ANTEROSEPTAL LEADS- CONSIDER ISCHEMIA ABNORMAL ECG COMPARED TO ECG 08/28/2023 13:05:34 NO SIGNIFICANT CHANGES Electronically Signed On 08-29-2023 16:52:21 PERSONAL BANKING OFFICER by Bora Mast D.O.
[2023-08-29] MEDS: METOPROLOL SUCCINATE EXT REL 50 MG TABCR 100 MG PO (09:27)
[2023-08-29] MEDS: AMIODARONE 360 MG/D5W 200 ML 360 MG/200 ML BAG 16.67 MG IV CONT (10:07)
--- NOTE | 2023-08-29 11:22 | PM.CNCAR ---
Assessment and Plan Assessment and plan (1) Ventricular tachycardia: Code(s): I47.20 - Ventricular tachycardia, unspecified Status: Acute Assessment and Plan: Patient has recurrent VT. Contacted the device read to have her come and overdrive pace him hopefully to restore a paced rhythm. Continue amiodarone drip for now. Will repeat bolus if need be. Depending on response to therapy and maintenance of normal rhythm, will consider discharge tomorrow or transfer to [facility]. Continue mexiletine also (2) Combined systolic and diastolic HF (heart failure): Code(s): I50.40 - Unspecified combined systolic (congestive) and diastolic (congestive) heart failure Status: Acute Assessment and Plan: Continue his home statin regimen including metoprolol, atorvastatin, aspirin, spironolactone (3) Essential (primary) hypertension: Code(s): I10 - Essential (primary) hypertension Status: Acute Assessment and Plan: As above (4) Ischemic cardiomyopathy: Code(s): I25.5 - Ischemic cardiomyopathy Status: Acute Assessment and Plan: Continue meds as above (5) CAD (coronary artery disease): Code(s): I25.10 - Atherosclerotic heart disease of [place] coronary artery without angina pectoris Status: Acute Assessment and Plan: Continue meds as above. History of Present Illness History of Present Illness Consult date/time: 08/29/23 11:22 Requesting physician: Pritesh Hall MD Consult reason: Other (Ventricular tachycardia) Reason For Visit: Wide Complex Arrhythmia Narrative: Date of service 08/29/2023 Reason for consultation: Ventricular tachycardia Requesting provider: Dr. Hall History patient is a 73-year-old male with a complex past medical and cardiac history. PMH of ascending aortic aneurysm, CKD, combined heart failure, CAD, HTN, ischemic cardiomyopathy, HLD, pulmonary fibrosis, and RLS. He follows with Dr. Nieto at [facility] from EP perspective. It was noticed that he was in wide complex tachycardia consistent with slow VT with a heart rate in the low 100s. He was advised to come to the hospital for further workup and evaluation. He was started on amiodarone drip yesterday which did convert him back to an AV paced rhythm. Overnight however he went back into ventricular tachycardia but at a lower rate in the 90s. He tolerates this well and neck she denies any chest pain, shortness of breath, syncope, presyncope, paroxysmal nocturnal dyspnea, orthopnea, edema or palpitations. Patient saw his congestive heart failure specialist, Rad MENDIOLA, 2 days ago and was started on digoxin 125 mg p.o. daily.? Patient otherwise reports that he feels at his normal health.? No other complaints. Review of Systems Review of Systems: All systems reviewed & are unremarkable except as noted in HPI and below Constitutional: Constitutional: Denies weakness Eyes: Eyes: Denies blurry vision ENT: Reports Normal hearing present Cardiovascular: Cardiovascular: Denies chest pain Respiratory: Respiratory: Denies chest congestion Gastrointestinal: Gastrointestinal: Denies abdominal pain Genitourinary: Genitourinary: Denies hematuria Musculoskeletal: Musculoskeletal: Denies back pain Integumentary/Breasts: Skin/Breast: Denies dry skin Neurologic: Denies Abnormal speech present Psychiatric: Psychiatric: Denies anxiety Endocrine: Endocrine: Denies excessive sweating Hematologic/Lymphatic: Hematologic/Lymphatic: Denies easy bleeding Allergic/Immunologic: Allergic/Immunologic: Denies GI upset with certain foods PMFSH Past Medical History Medical History (Updated 08/29/23 @ 11:28 by Carmine Leary MD) Actinic keratosis of scalp Ascending aortic aneurysm Bilateral carpal tunnel syndrome 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) Coronary artery disease Essential (primary) hyperte
--- NOTE | 2023-08-29 12:48 | PM.IMPN ---
Progress Note: A&P Assessment and Plan (1) Arrhythmia: Code(s): I49.9 - Cardiac arrhythmia, unspecified Status: Acute Assessment and Plan: - EKG, initial: Sinus or ectopic atrial rhythm, right axis deviation, RBBB, inferior infarct age indeterminate, ST-T-wave abnormality in anteroseptal leads, baseline artifact. When compared to previous, no significant changes. -EKG, repeat: Sinus or ectopic atrial rhythm, right axis deviation, RBBB, inferior infarct age indeterminate, ST-T-wave abnormality in anteroseptal leads, baseline artifact. - pacemaker/defibrillator interrogated - pacemaker rep assessed device at bedside, made adjustments and patient's kennel manager dog track (Kristin MENDIOLA, [employer]) was updated by rep - cardiology consulted, awaiting formal recs. ED provider spoke with Cardiology SHEETFED PRESS OPERATOR who recommended: hold home digoxin 125 mg PO daily starting amiodarone gtt, PO amiodarone held - amiodarone gtt currently at 0.5 mg/min, per Gibran MENDIOLA - continue overnight and transition to PO tomorrow - continue home medications: Mexitil and metoprolol. - troponin: <0.012 x2 - continue telemetry monitoring -08/28 with continued episodes of slow VT with rate 90 but w/o sx's, d/w cardiology (Dr. Leary) and recommended transfer to EP service at [facility] but not taking patients so contacted call center for [facility] and await return call. Pt and family aware. 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 Complete two-dimensional, color flow and Doppler transthoracic echocardiogram is performed. 2. Severe left ventricular enlargement with severely reduced systolic contractility. 3. Dilated left atrium. 4. Mild mitral regurgitation resulting from annular dilation. 5. Sclerotic aortic valve with good leaflet excursion/no stenosis. 6. Pacemaker/ICD lead identified. 7. Small amounts of mitral, aortic and pulmonic regurgitation. - hold home digoxin 125 mg PO daily, started by Rad MENDIOLA (Heart Failure specialist). filled yesterday . - continues to report exertional dyspnea that has progressed slightlyover the last 2 weeks, CXR ordered and showed cardiomegaly and small pleural effusions. Has been previously told exertional dyspnea may be secondary to COVID infection in June - continue home diuresis: Spironolactone 25 mg p.o. daily - Clincally stable (3) CKD stage 4 secondary to hypertension: Code(s): I12.9 - Hypertensive chronic kidney disease with stage 1 through stage 4 chronic kidney disease, or unspecified chronic kidney disease; N18.4 - Chronic kidney disease, stage 4 (severe) Status: Acute Assessment and Plan: - creatinine 1.6, 1.8 on 08/27 - previously 1.4 on 07/20/2023 - (4) Essential (primary) hypertension: Code(s): I10 - Essential (primary) hypertension Status: Acute Assessment and Plan: - chronic, currently normotensive but on the lower end. last BP 107/89. - continue home medications: Metoprolol - monitor Plan Here for further evaluation of arrhythmia on outpatient EKG. Cardiology has been consulted, awaiting formal recs. Amiodarone drip in place, transition to p.o. in a.m. Telemetry monitoring. Home Meds/Chronic Conditions - HLD: Continue atorvastatin - continued daily aspirin 81 Diet: heart healthy GI Prophylaxis: not indicated DVT Prophylaxis: SCDs Lines: pIV Code Status: Full Code Subjective Date/time seen: 08/29/23 12:48 Interval history: Admitted 08/27 with chest discomfort. Mild. No recurrence. Troponin negative x2. EKG without ischemic changes. However was noted to have slow V-tach at rate of 90. Electrolytes optimize. Trial of amiodarone fail. Trial of overdrive pacing failed. Patient is asymptomatic and tolerating diet. No shortness of breath chest pain palpitations diz
--- NOTE | 2023-08-29 13:03 | PM.TDS ---
Transfer Discharge Sum: Prov Provider Date of admission: 08/28/23 14:53 Primary care physician: Mike Collazo MD Admitting clinician: David Yeh MD Consults: 08/28/23 Consult to Physician Routine Comment: Consulting Provider: Mike Medina Reason for consultation: wide complex arrhythmia Has provider been notified: Yes DS: Admitting Diagnosis Discharge Date 08/29/2023 Admitting Diagnosis chest discomfort DS: Discharge Diagnosis Discharge Diagnosis (1) Arrhythmia: Code(s): I49.9 - Cardiac arrhythmia, unspecified Status: Acute Assessment and Plan: - EKG, initial: Sinus or ectopic atrial rhythm, right axis deviation, RBBB, inferior infarct age indeterminate, ST-T-wave abnormality in anteroseptal leads, baseline artifact. When compared to previous, no significant changes. -EKG, repeat: Sinus or ectopic atrial rhythm, right axis deviation, RBBB, inferior infarct age indeterminate, ST-T-wave abnormality in anteroseptal leads, baseline artifact. - pacemaker/defibrillator interrogated - pacemaker rep assessed device at bedside, made adjustments and patient's stockroom supervisor (Kristin MENDIOLA, [employer]) was updated by rep - cardiology consulted, awaiting formal recs. ED provider spoke with Cardiology PHARMACY SALES REPRESENTATIVE who recommended: hold home digoxin 125 mg PO daily starting amiodarone gtt, PO amiodarone held - amiodarone gtt currently at 0.5 mg/min, per Gibran MENDIOLA - continue overnight and transition to PO tomorrow - continue home medications: Mexitil and metoprolol. - troponin: <0.012 x2 - continue telemetry monitoring -3/2 with continued episodes of slow VT with rate 90 but w/o sx's, d/w cardiology (Dr. Leary) and recommended transfer to EP service at [facility] but not taking patients so contacted call center for [place] and await return call. Pt and family aware. 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 Complete two-dimensional, color flow and Doppler transthoracic echocardiogram is performed. 2. Severe left ventricular enlargement with severely reduced systolic contractility. 3. Dilated left atrium. 4. Mild mitral regurgitation resulting from annular dilation. 5. Sclerotic aortic valve with good leaflet excursion/no stenosis. 6. Pacemaker/ICD lead identified. 7. Small amounts of mitral, aortic and pulmonic regurgitation. - hold home digoxin 125 mg PO daily, started by Rad MENDIOLA (Heart Failure specialist). filled yesterday . - continues to report exertional dyspnea that has progressed slightlyover the last 2 weeks, CXR ordered and showed cardiomegaly and small pleural effusions. Has been previously told exertional dyspnea may be secondary to COVID infection in June - continue home diuresis: Spironolactone 25 mg p.o. daily - Clincally stable (3) CKD stage 4 secondary to hypertension: Code(s): I12.9 - Hypertensive chronic kidney disease with stage 1 through stage 4 chronic kidney disease, or unspecified chronic kidney disease; N18.4 - Chronic kidney disease, stage 4 (severe) Status: Acute Assessment and Plan: - creatinine 1.6, 1.8 on 08/27 - previously 1.4 on 07/20/2023 - (4) Essential (primary) hypertension: Code(s): I10 - Essential (primary) hypertension Status: Acute Assessment and Plan: - chronic, currently normotensive but on the lower end. last BP 107/89. - continue home medications: Metoprolol - monitor Transfer Discharge Sum: Med Medications Active and Home Medications: Home Medications amiodarone 200 mg tablet 200 mg PO QPM 11/22/19 [History Confirmed 08/28/23] aspirin 81 mg tablet,delayed release 81 mg PO QAM 11/22/19 [History Confirmed 08/28/23] mexiletine 150 mg capsule 150 mg PO 0900,1500,2100 06/03/22 [History Confirmed 08/28/23] atorv
--- NOTE | 2023-08-29 13:04 | PC.NURSE ---
spoke with [facility]. gave updated vitals and information. Patient is on the wait list and they will call when a bed opens up.
--- NOTE | 2023-08-29 16:20 | ECG_ITS ---
Measurements Intervals [place] Rate: 91 P: 227 WA: 154 QRS: 246 QRSD: 255 T: 34 QT: 510 QTc: 629 Interpretive Statements ACCELERATED JUNCTIONAL RHYTHM RIGHT AXIS DEVIATION RIGHT BUNDLE BRANCH BLOCK INFERIOR INFARCT, AGE INDETERMINATE ST-T WAVE ABNORMALITY IN ANTEROSEPTAL LEADS- CONSIDER ISCHEMIA BASELINE ARTIFACT- I, III, AVR, AVL ABNORMAL ECG COMPARED TO ECG 08/29/2023 09:20:45 ACCELERATED JUNCTIONAL RHYTHM NOW PRESENT Electronically Signed On 08-30-2023 8:15:19 SECRETARY BOOK KEEPER by Bora Mast D.O.
== END 2023-08-29 19:38 | disposition short-term general hospital (02) | DRG 309 ==
LOC: ANHED 11:54 → ANHIMU 15:55
PROVIDERS: Student in an Organized Health Care Education/Training Program; Admitting Provider Family Medicine; Emergency Provider Emergency Medicine; PCP Family Medicine; Visit Provider Internal Medicine
DX: I47.20 Ventricular tachycardia, unspecified (principal); I13.0 Hypertensive heart and chronic kidney disease with heart failure and stage 1 through stage 4 chronic kidney disease, or unspecified chronic kidney disease; I50.42 Chronic combined systolic (congestive) and diastolic (congestive) heart failure; N18.4 Chronic kidney disease, stage 4 (severe); I25.5 Ischemic cardiomyopathy; I25.10 Atherosclerotic heart disease of native coronary artery without angina pectoris; I71.21 Aneurysm of the ascending aorta, without rupture; J84.10 Pulmonary fibrosis, unspecified; E11.22 Type 2 diabetes mellitus with diabetic chronic kidney disease; E78.2 Mixed hyperlipidemia; G25.81 Restless legs syndrome; Z20.822 Contact with and (suspected) exposure to COVID-19; Z95.810 Presence of automatic (implantable) cardiac defibrillator; Z79.82 Long term (current) use of aspirin; Z87.891 Personal history of nicotine dependence
CPT/HCPCS: 36415; 71045; 80053; 82465; 83718; 83721; 83735; 83880; 84484; 85025; 85610; 85730; 87637; 93005; 96361; 96366; 99285; A9270; G0378; J0282; J7120

== ENCOUNTER 2023-11-23 09:38 | Emergency (ER) | payer MEDICARE, OTHER, SELFPAY ==
[2023-11-23] VITALS (32 sets, daily range): BP systolic 118–149; BP diastolic 79–100; PULSE 74–79; RESP 12–21; TEMP 36.4; O2SAT 98–100
--- NOTE | ~2023-11-23 | CT_ITS ---
EXAMINATION:CT diagnostic chest w con DATE: 11/23/2023 13:42 INDICATION: Left chest wall hematoma. TECHNIQUE: Computed tomography (CT) of the chest was performed with 75 mL Omnipaque 350 intravenous c ontrast. Automated exposure control and iterative reconstruction technique were employed. The dose-le ngth product (DLP) was 194.10 mGy-cm. COMPARISON: Chest CT 07/16/2023 FINDINGS: There is mild emphysema. There is mild atelectasis bilaterally. There is left atrial and le ft ventricular enlargement of the heart. There are changes of coronary artery bypass grafting. There are coronary artery calcifications. There is a left chest pacer with leads in right atrium, right siobhan tricle, and coronary sinus. There is hematoma around the device in left chest. There is mild bilatera l gynecomastia. There is a filter in the inferior vena cava. There is a 2.4 cm cyst in left kidney. T here is cortical thinning of the kidneys. There is severe cervical spondylosis and mild thoracic spon dylosis. There is mild chronic height loss of multiple vertebral bodies. IMPRESSION: 1. Hematoma around the pacer in left anterior chest wall. 2. Mild emphysema. Reviewed, dictated and finalized at location E.
--- NOTE | ~2023-11-23 | XR_ITS ---
EXAMINATION: XR chest 1V portable DATE: 11/23/2023 11:33 INDICATION: Left chest hematoma. TECHNIQUE: A single frontal view of the chest was obtained on 2 radiographs. COMPARISON: Chest single view 08/28/2023, chest CT 07/16/2023 FINDINGS: There is mild atelectasis in right lower lung zone. No pleural effusion or pneumothorax. Ca rdiomegaly is noted. There is a left chest pacer/defibrillator with leads in right atrium, right vent ricle, and coronary sinus. There is ectasia of ascending aorta. There is a filter in the inferior siobhan a cava. IMPRESSION: 1. Mild atelectasis in right lower lung zone. 2. Cardiomegaly. Reviewed, dictated and finalized at location E.
--- NOTE | 2023-11-23 10:15 | PC.NURSE ---
Direct pressure held to left chest incision for 25 min. Wound oozing dark red blood.
--- NOTE | 2023-11-23 12:12 | ED.GENADULT ---
HPI - General Adult General Chief complaint: Wound/Laceration Stated complaint: surgical wound bleeding Time Seen by Provider: 11/23/23 11:23 Source: patient Mode of arrival: ambulatory Limitations: no limitations History of Present Illness HPI narrative: This is a 73 year old male with PMH of CAD, cardiomyopathy, CHF, s/p pacemaker placement who presents to the ED with chief complaint bleeding surgical wound to the left chest wall. Patient reports that on 11/02/2023, he had his pacemaker replaced and put in to a new location by his EP at [facility], Dr. Naidu. Reports that following the procedure it they did note that he had a soft tissue hematoma building but told him to just keep an eye on it. He states that today around 7:00 a.m. it started to bleed prominently. States it has been oozing brown blood ever since and has not been able to stop. He is taking a baby aspirin but no blood thinner. Denies any pain at the wound site. Denies chest pain, shortness of breath, lightheaded, cough, fevers, chills. Related Data Home Medications Medication Instructions Recorded Confirmed amiodarone 200 mg tablet 200 mg PO QPM 11/22/19 08/28/23 aspirin 81 mg tablet,delayed 81 mg PO QAM 11/22/19 08/28/23 release mexiletine 150 mg capsule 150 mg PO 0900,1500,2100 06/03/22 08/28/23 atorvastatin 80 mg tablet 80 mg PO QAM 12/05/22 08/28/23 metoprolol succinate 50 mg 100 mg PO QAM 12/05/22 08/28/23 tablet,extended release 24 hr digoxin 125 mcg (0.125 mg) tablet 125 mcg PO QAM 08/28/23 08/28/23 Allergies Allergy/AdvReac Type Severity Reaction Status Date / Time No Known Allergies Allergy Verified 11/23/23 09:40 Review of Systems Review of Systems: All systems as dictated in [facility] Past Medical History Medical History (Updated 11/23/23 @ 15:08 by Benjamín Matthews PA-C) Actinic keratosis of scalp Ascending aortic aneurysm Bilateral carpal tunnel syndrome 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) Coronary artery disease Essential (primary) hypertension History of nicotine dependence Ischemic cardiomyopathy Mixed hyperlipidemia Pulmonary fibrosis Restless legs syndrome Ventricular tachycardia Surgical History Surgical History History of cardiac pacemaker Family History Family History Sibling Cerebrovascular accident Mother Diabetes mellitus Hypertension Father History of blood clots Hypertension Social History Social History Smoking packs per day: 1 Smoking cigarettes per day: 20.0 Years smoked: 35 Smoking pack-years: 35.00 Smoking status: Former smoker Second hand tobacco smoke exposure: Yes Additional smoking assessment comments: former heavy smoker, quit 25 years ago. Alcohol intake: never Substance use: never Substance use type: does not use Do You Feel Safe in your Home?: Yes Lack of Transportation: No Lack of Food: Never True Current Housing: I Have Housing Concerned About Future Housing: No Difficulty Paying Gas/Electric Bills: No Difficulty Paying for Meds: No Currently Unemployed: No Education: Bachelor's Degree Difficulty w/ Childcare or Family Care: No Living arrangements: with family Additional living arrangements comments: Pt lives with his Occupation/Education: retired Gender identity (if verbalized by the patient): Male Sexual Orientation (if Verbalized by the Patient): Straight or Heterosexual Spiritual care concerns: No Exam Narrative: GENERAL: Well-appearing, well-nourished, and in no acute distress. HEAD: Normocephalic, atraumatic. EYES: PERRLA and EOMI. ENT: Nares clear, no rhinorrhea or epistaxis. Mucous membranes moist. Oropharynx without tonsillar hypertrophy exudate or other lesions. NECK: Supple. No a
[2023-11-23 12:45] LABS: Basophils Absolute Auto 0.1 K/mm3 (0.0-0.1); Basophils Percent Auto 1.1 % (0.2-1.2); Eosinophils Absolute Auto 0.2 K/mm3 (0-0.3); Eosinophils Percent Auto 2.8 % (0-4.4); Hematocrit 42.9 % (42.0-52.0); Hemoglobin 13.4 g/dL (14.0-18.0); Immature Granulocyte Absolute 0.02 K/mm3 (0.00-0.031); Immature Granulocyte Percent A 0.3 % (0-0.5); Lymphocytes Absolute Auto 1.16 K/mm3 (0.9-3.2); Lymphocytes Percent Auto 17.8 % (18.3-44.2); Mean Corpuscular HGB Conc 31.2 g/dl (32-36); Mean Corpuscular Hemoglobin 28.3 pg (26-34); Mean Corpuscular Volume 90.7 fl (80-100); Mean Platelet Volume 10.3 fl (7.4-10.4); Monocytes Absolute Auto 0.6 K/mm3 (0.1-0.6); Monocytes Percent Auto 9.5 % (2.6-8.5); Neutrophils Absolute Auto 4.5 K/mm3 (1.3-6.7); Neutrophils Percent Auto 68.5 % (45.5-73.1); Platelet Count Result 197 k/mm3 (150-375); Red Blood Count 4.73 M/mm3 (4.6-6.20); Red Cell Distribution Width 14.6 % (11.5-14.5); White Blood Count 6.5 K/mm3 (4.5-10.0)
[2023-11-23 12:57] LABS: Alanine Aminotransferase 44 U/L (6-50); Albumin Level 3.9 g/dL (3.5-5.1); Alkaline Phosphatase 76 U/L (38-126); Anion Gap 3 mmol/L (4-12); Aspartate Amino Transferase 39 U/L (17-59); Bilirubin,Total 0.9 mg/dL (0.2-1.3); Blood Urea Nitrogen 14 mg/dL (9-20); Calcium 8.8 mg/dL (8.4-10.2); Carbon Dioxide 28 mmol/L (22-30); Chloride 105 mmol/L (98-107); Estimated CRCL calculation 38 ml/min; Estimated Glomerular Filt Rate 43; Glucose 101 mg/dL (65-110); Potassium 4.6 mmol/L (3.4-5.0); Sodium 136 mmol/L (137-145)
[2023-11-23 13:02] LABS: INR 1.1; Prothrombin Time 14.3 Seconds (11.1-14.7)
[2023-11-23 13:03] LABS: Partial Thromboplastin Time 31.8 Seconds (22.3-36.8)
== END 2023-11-23 15:49 | disposition home or self-care (01) ==
PROVIDERS: Emergency Provider Physician Assistant; PCP Family Medicine
DX: L76.32 Postprocedural hematoma of skin and subcutaneous tissue following other procedure (principal); Z95.0 Presence of cardiac pacemaker; I25.10 Atherosclerotic heart disease of native coronary artery without angina pectoris; I50.9 Heart failure, unspecified; I13.0 Hypertensive heart and chronic kidney disease with heart failure and stage 1 through stage 4 chronic kidney disease, or unspecified chronic kidney disease; N18.4 Chronic kidney disease, stage 4 (severe); I50.40 Unspecified combined systolic (congestive) and diastolic (congestive) heart failure; I25.5 Ischemic cardiomyopathy; E78.2 Mixed hyperlipidemia; J84.10 Pulmonary fibrosis, unspecified; G25.81 Restless legs syndrome; Z87.891 Personal history of nicotine dependence; Z79.82 Long term (current) use of aspirin; Z79.899 Other long term (current) drug therapy; Y84.8 Other medical procedures as the cause of abnormal reaction of the patient, or of later complication, without mention of misadventure at the time of the procedure
CPT/HCPCS: 36415; 71045; 71260; 80053; 85025; 85610; 85730; 99284; Q9967

== ENCOUNTER 2024-04-19 11:17 | Emergency (ER) | payer MEDICARE, OTHER, SELFPAY ==
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
[2024-04-19 11:29] VITALS: BP 111/62; PULSE 79; RESP 16; TEMP 36; O2SAT 100
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
== END 2024-04-19 12:38 | disposition home or self-care (01) ==
PROVIDERS: Emergency Provider Nurse Practitioner Family; PCP Family Medicine
DX: S22.41XA Multiple fractures of ribs, right side, initial encounter for closed fracture (principal); V18.4XXA Pedal cycle driver injured in noncollision transport accident in traffic accident, initial encounter; Y93.55 Activity, bike riding; I13.0 Hypertensive heart and chronic kidney disease with heart failure and stage 1 through stage 4 chronic kidney disease, or unspecified chronic kidney disease; N18.4 Chronic kidney disease, stage 4 (severe); I50.40 Unspecified combined systolic (congestive) and diastolic (congestive) heart failure; I25.10 Atherosclerotic heart disease of native coronary artery without angina pectoris; E78.2 Mixed hyperlipidemia; G25.81 Restless legs syndrome; Z95.0 Presence of cardiac pacemaker; Z79.82 Long term (current) use of aspirin
CPT/HCPCS: 71101; 99213; G0463

== ENCOUNTER 2025-04-24 14:01 | Outpatient (CLI) | payer MEDICARE, OTHER, SELFPAY ==
--- NOTE | ~2025-04-24 | XR_ITS ---
[id number] Indication: Cervicalgia, random pain shooting to arm on left side x 1 mo Comparison: None Findings: Grade 1 retrolisthesis of C4 on C5, no fracture. Severe loss of disc height C4-5 C5-6 and C6-7. Soft tissues unremarkable Impression: No acute abnormality. Reviewed, dictated and finalized at location P. Impression: No acute abnormality.
--- NOTE | ~2025-04-24 | XR_ITS ---
EXAMINATION: XR shoulder LT min 2V, 04/24/2025 14:15 CDT HISTORY: M25.512 - Pain in left shoulder COMPARISON: No comparisons available. Findings: No acute fracture or malalignment. Moderate degenerative changes Soft tissues unremarkable. Impression: No acute fracture or malalignment. Reviewed, dictated and finalized at location P. Impression: No acute fracture or malalignment.
== END 2025-04-24 14:02 | disposition home or self-care (01) ==
LOC: GOSHIMG 14:02
PROVIDERS: PCP Nurse Practitioner Family; Visit Provider Nurse Practitioner Family
DX: M54.2 Cervicalgia (principal); M25.512 Pain in left shoulder
CPT/HCPCS: 72040; 73030

== ENCOUNTER 2025-05-29 13:27 | Outpatient (CLI) | payer MEDICARE, OTHER, SELFPAY ==
--- NOTE | ~2025-05-29 | US_ITS ---
EXAMINATION: US renal BI, 05/29/2025 13:42 CUSTOMS BROKERAGE MANAGER HISTORY: I42.9 - Cardiomyopathy, unspecified Comparison: None Technique: Young-scale and color Doppler images were obtained. Findings: KIDNEYS: The renal cortices bilaterally are thinned and echogenic, no hydronephrosis. Right Kidney: Right kidney superior pole echogenic pole calculus measures 8 x 5 x 8 mm Right kidney 10.6 x 5.3 x 5.2 cm, multiple simple appearing cysts the largest 1.7 x 2.1 cm. Left Kidney: Left kidney midpole there is a complex lesion measuring 1.7 x 1.6 cm. Left kidney 10.8 x 5.4 x 5.5 cm, multiple simple appearing cysts the largest 1.7 x 1.7 cm. Bladder: The bladder is unremarkable. . Impression: 1. Medical renal disease without obstruction. 2. Complex left renal lesion incompletely evaluated. Contrast-enhanced CT or MRI is suggested. If there are renal function issues noncontrast MRI can BE obtained. 3. Bilateral simple appearing renal cysts Reviewed, dictated and finalized at location P. OMS BROKERAGE MANAGER Impression: 1. Medical renal disease without obstruction. 2. Complex left renal lesion incompletely evaluated. Contrast-enhanced CT or MR I is suggested. If there are renal function issues noncontrast MRI can BE obtai silvana. 3. Bilateral simple appearing renal cysts
--- OUTSIDE RECORDS SUMMARY | 2025-05-29 14:33 | XMS_ITS | Encounter Summary ---
Author Organization [facility] Address [address] [place] [address] Phone Care Team Providers Care Silvering Department Supervisor Name Role Phone Fortunato Leroy MD Unavailable Maria Alejandra Marquis RN Unavailable [phone] Mike Collazo MD Primary Care Provider [phone] Debi Thorpe Unavailable Unavailable Encounter Details Date Type Department Care Team (Late st Contact Info) Description 05/17/2025 Results Follow-Up [facility] Cardiology [address] [facility] Advanced Medicine 8th [place] [address] [place] [id number] Diaz Daniel MD [address] [facility] [place], [place] [id number] ECG 12 lead Social History Tobacco Use Types Packs/Day Years Used Date Smoking Tobacco: Former Cigarettes 1 40 Smokeless Tobacco: Never Comments:Started at age 17 Alcohol Use Standard Drinks/Week Comments Never 0 (1 standard drink = 0.6 oz pur e alcohol) AUDIT-C Answer Date Recorded Q1: How often do you have a drink containing alcohol? Never 04/10/2025 Q2: How many drinks containi ng alcohol do you have on a typical day when you are drinking? Patient does not drink Q3: How often do you have si x or more drinks on one occasion? Never 04/10/2025 Personal Safety Answer Date Recorded Have you ever been in or are you currently in a harmful physical or emotional relationship or is someone making you feel afraid or unsafe? Denies 04/10/2025 Sex and Gender Information Value Date Recorded Sex Assigned at Not on file Legal Sex Male 10:50 AM INSTITUTIONAL RESEARCH DIRECTOR Gender Identity Male 05/09/2021 4:04 PM INSTITUTIONAL RESEARCH DIRECTOR Sexual Orientation Not on file documented as of this encounter Functional Status * BP Location Answer Date of Assessment Author Right arm 05/17/2025 9:19 AM INSTITUTIONAL RESEARCH DIRECTOR Karen Nguyễn * BP Location Answer Date of Assessment Author Right arm 05/17/2025 9:19 AM INSTITUTIONAL RESEARCH DIRECTOR Karen Nguyễn documented as of this encounter Plan of Treatment Not on file documented as of this encounter Visit Diagnoses Not on filedocumented in this encounter Additional Health Concerns Infection Onset Date Last Indicated Resolved Time 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 01/24/13 01/27/2013 01/27/2013 documented as of this encounter Care Teams Silvering Department Supervisor Relationship Specialty Start Date End Date Mike Collazo MD [facility] [address] [facility] [address] [place] [address] PCP - General Family Medicine 09/14/24 Fortunato Leroy MD Pad Tufter Transplant 08/27/23 Maria Alejandra Marquis RN [address] [facility] [address] [place] [address] Heart Failure Coordinator Corporate Treasury Analyst 08/27/23 Debi Tohrpe Primary Drapery Hemmer Automatic 03/16/25 documented as of this encounter
--- OUTSIDE RECORDS SUMMARY | 2025-05-29 14:33 | XMS_ITS | Encounter Summary ---
Author Organization [facility] Address [address] [place] [address] Care Team Providers Care Manager Local Name Role Phone Fortunato Leroy MD Unavailable [phone] Maria Alejandra Marquis RN Unavailable [phone] Mike Collazo MD Primary Care Provider [phone] Debi Thorpe Unavailable Unavailable Encounter Details Date Type Department Care Team (Late st Contact Info) Description 04/12/2025 Cardiology [facility] Non-invasive Cardiac Diagnostic Testing [address] [place] [address] Cresencio Fontenot, RN Social History Tobacco Use Types Packs/Day Years [...] on file Legal Sex Male 10:50 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 OF SURGERY Gender Identity Male 05/09/2021 4:04 PM ASSOCIATE PROFESSOR OF SURGERY Sexual Orientation Not on file documented as of this encounter Plan of Treatment Not on file documented as of this encounter Visit Diagnoses Not on filedocumented in this encounter Additional Health Concerns Infection Onset Date Last Indicated Resolved Time 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 01/24/13 01/27/2013 01/27/2013 documented as of this encounter Care Teams Manager Local Relationship Specialty Start Date End Date Mike Collazo MD [facility] [address] [place] [address] PCP - General Family Medicine 09/14/24 Fortunato Leroy MD Fire Sprinkler Apparatus Inspector Transplant 08/27/23 Maria Alejandra Marquis RN [address] [facility] [address] [place] [address] Heart Failure Coordinator Manager Of Hospital 08/27/23 Debi Thorpe Primary Sec Reporting Consultant 03/16/25 documented as of this encounter
--- OUTSIDE RECORDS SUMMARY | 2025-05-29 14:33 | XMS_ITS | Encounter Summary ---
Author Organization [facility] Address [address] [facility] [address] [place] [address] Care Team Providers Care Spring Former Hand Name Role Phone Brian Lozano MD Primary Care Provider [phone] Benito Pineda MD Primary Care Provider Fortunato Leroy MD Unavailable [phone] Maria Alejandra Marquis RN Unavailable [phone] Mike Collazo MD Primary Care Provider [phone] Debi Thorpe Unavailable Unavailable Encounter Details Date Type Department Care Team (Late st Contact Info) Description 10/20/2016 Orders Only [facility] Provider, MD E[place] [address] [place] [address] Social History Tobacco Use Types Packs/Day Years Used Date Smoking Tobacco: Former Cigarettes Q uit: 06/29/2008 Alcohol Use Standard Drinks/Week Comments No 0 (1 standard drink = 0.6 oz pur e alcohol) Sex and Gender Information Value Date Recorded Sex Assigned at Not on file Legal Sex Male 10:50 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 01/24/13 01/27/2013 01/27/2013 MRSA Comment:MRSA bacteremia in consult note from [facility] in [place], [place] 02/24/2013 02/24/2013 02/13/2021 5:00 AM C DT documented as of this encounter Care Teams Spring Former Hand Relationship Specialty Start Date End Date Brian Lozano MD [address] [place] [address] PCP - General 09/26/16 04/09/23 Bneito Pineda MD [address] [place] [address] [place] [address] PCP - General Family Medicine 04/10/23 09/13/24 Mike Collazo MD [address] [place] [address] DR PETER [address] [place] [address] PCP - General Family Medicine 09/14/24 Fortunato Leroy MD [address] [place] [address] [place] [address] Casket Liner Transplant 08/27/23 Maria Alejandra Marquis, JORDAN [address] [facility] [address] [place] [address] Heart Failure Coordinator Technical Specialist Cytology 08/27/23 Debi Thorpe Primary Technical Support Internship 03/16/25 documented as of this encounter
--- OUTSIDE RECORDS SUMMARY | 2025-05-29 14:33 | XMS_ITS | Encounter Summary ---
Author Organization [facility] Address [address] [place] [address] Care Team Providers Care Area Representative Name Role Phone Mike Collazo MD Primary Care Provider [phone] Encounter Details Date Type Department Care Team (Late st Contact Info) Description 03/20/2025 Chart Note [facility] Heart and Vascular - [address] [facility] 202 [address] [facility] 202 [place] [address] [place] [address] [facility] [address] [place] [address] Social History Tobacco Use Types Packs/Day Years Used Date Smoking Tobacco: Former Cigarettes 0 Q uit: 1980 Smokeless Tobacco: Never Alcohol Use Standard Drinks/Week Comments Not Currently 0 (1 standard drink = 0.6 oz pur e alcohol) Feeling Safe Answer Date Recorded Are you in a relationship wi th someone who hurts you emotionally and/or physically? 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 Gender Identity Not on file Sexual Orientation Not on file documented as of this encounter Plan of Treatment Upcoming Encounters Date Type Department Care Team (Late st Contact Info) Description 08/08/2025 5:15 PM PRINTING WORKER SUPERVISOR Office Visit [facility] Heart and Vascular Electrophysiology - [address] [facility] 300 [address] [facility] 300 [place] [address] documented as of this encounter Visit Diagnoses Not on filedocumented in this encounter Care Teams Area Representative Relationship Specialty Start Date End Date Mike Collazo MD [address] [place] [address] 200 [place] [address] PCP - General Family Practice 08/30/23 documented as of this encounter
--- OUTSIDE RECORDS SUMMARY | 2025-05-29 14:33 | XMS_ITS | Encounter Summary ---
Author Organization [facility] Address [address] [place] [address] Care Team Providers Care Mainstreaming Facilitator Name Role Phone Mike Collazo MD Primary Care Provider [phone] Encounter Details Date Type Department Care Team (Latest Contact Info) Description 05/12/2025 Results [facility] Heart and Vascular Electrophysiology - [address] [facility] 300 [address] [facility] 300 [place] [address] [place] [address] [facility] 300 [place] [address] ICD ANALYSIS REMOTE, UP TO 90 DAYS Social History Tobacco Use Types Packs/Day Years [...] on file Legal Sex Male 5:35 PM MANAGER FLOAT Gender Identity Not on file Sexual Orientation Not on file documented as of this encounter Miscellaneous Notes * Result Encounter Note - Angel Ortiz MD - 05/12/2025 7:34 AM MANAGER FLOAT Reviewed and agree with the documentation. GER FLOAT documented in this encounter Plan of Treatment Upcoming Encounters Date Type Department Care Team (Late st Contact Info) Description 08/08/2025 5:15 PM MANAGER FLOAT Office Visit [facility] Heart and Vascular Electrophysiology - [address] [facility] 300 [address] [facility] 300 [place] [address] documented as of this encounter Visit Diagnoses Not on filedocumented in this encounter Care Teams Mainstreaming Facilitator Relationship Specialty Start Date End Date Mike Collazo MD [facility] 200 [place] [address] PCP - General Family Practice 08/30/23 documented as of this encounter
--- OUTSIDE RECORDS SUMMARY | 2025-05-29 14:33 | XMS_ITS | Encounter Summary ---
Author Organization [facility] Address [address] [place] [address] Care Team Providers Care Malt House Kiln Operator Name Role Phone Brian Lozano MD Primary Care Provider [phone] Benito Pineda MD Primary Care Provider [phone] Fortunato Leroy MD Unavailable [phone] Maria Alejandra Marquis RN Unavailable [phone] Mike Collazo MD Primary Care Provider [phone] Debi Thorpe Unavailable Unavailable Encounter Details Date Type Department Care Team (Late st Contact Info) Description 01/12/2018 Orders Only [facility] Information Management [address] [place] [address] Scanning, Provider Social History Tobacco Use Types Packs/Day Years Used Date Smoking Tobacco: Former Smokeless Tobacco: Never Alcohol Use Standard Drinks/Week Comments No 0 (1 standard drink = 0.6 oz pur e alcohol) Sex and Gender Information Value Date Recorded Sex Assigned at Not on file 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 Gender Identity Male 05/09/2021 4:04 PM FOOD SAFETY TECHNICIAN Sexual Orientation Not on file documented as of this encounter Plan of Treatment Not on file documented as of this encounter Procedures Procedure Name Priority Date/Time Associated Diagnosis Comments SCAN - LABS 01/12/2018 documented in this encounter Results * SCAN - LABS (01/12/2018) us Provider Scanning Final Result documented in this encounter Visit Diagnoses Not on filedocumented in this encounter Additional Health Concerns Infection Onset Date Last Indicated Resolved Time 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 01/24/13 01/27/2013 01/27/2013 MRSA Comment:MRSA bacteremia in consult note from [facility] in [place], [place] 02/24/2013 02/24/2013 02/13/2021 5:00 AM C DT documented as of this encounter Care Teams Malt House Kiln Operator Relationship Specialty Start Date End Date Brian Lozano MD [address] [address] PCP - General 09/26/16 04/09/23 Benito Pineda MD [address] [place] [address] [place] [address] PCP - General Family Medicine 04/10/23 09/13/24 Mike Collazo MD [address] [place] [address] DR PETER [address] [place] [address] PCP - General Family Medicine 09/14/24 Fortunato Leroy MD [address] [place] [address] [place] [address] Biomedical Electronics Technician Transplant 08/27/23 Maria Alejandra Marquis RN [address] [address] Heart Failure Coordinator Shaker Out 08/27/23 Debi Thorpe Primary Bottom Cager 03/16/25 documented as of this encounter
--- OUTSIDE RECORDS SUMMARY | 2025-05-29 14:33 | XMS_ITS | Encounter Summary ---
Author Organization [facility] Address 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 Gender Identity Not on file Sexual Orientation Not on file documented as of this encounter Plan of Treatment Upcoming Encounters Date Type Department Care Team (Late st Contact Info) Description 08/08/2025 5:15 PM BODY SHOP MECHANIC Office Visit [facility] Heart and Vascular Electrophysiology - [address] [facility] 300 [address] [facility] 300 [place] [address] documented as of this encounter Visit Diagnoses Not on filedocumented in this encounter Care Teams Intermediate Teacher Relationship Specialty Start Date End Date Mike Collazo MD [address] [place] [address] 200 [place] [address] PCP - General Family Practice 08/30/23 documented as of this encounter
--- OUTSIDE RECORDS SUMMARY | 2025-05-29 14:33 | XMS_ITS | Clinical Summary ---
Author Organization [facility] Address [address] [facility] [place] [address] Care Team Providers Care Handcrew Foreman Name Role Phone Brian Lozano MD Primary Care Provider Source Comments [facility],non-owned Affiliates and Associated Physician Practices is amultiple site organization consisting of ambulatory clinics and hospital sitesin [place], [place]. This disclosure is being madepursuant to the Care Everywhere program and may not contain all information available regarding this patient. Last updated 18.[facility] Allergies No known active allergies Medications * Be aware that medications may not be up to date on this document. Alwaysverify current medications with the patient. acetaminophen (TYLENOL) 325 MG tablet Take 650 mg by mouth every 4 hours as needed. Maximum allowable Acetaminophen amount = 4 Grams (4000 mg) / 24 hours. Active amiodarone (CORDARONE) 400 MG tablet Take 200 mg by mouth once daily Active aspirin 81 MG chew tablet Take 81 mg by mouth once daily. Active carvedilol (COREG) 3.125 MG tablet Take 3.125 mg by mouth 2 times daily with morning and evening meal. Active atorvastatin (LIPITOR) 20 MG tablet Take 1 Tab by mouth at bedtime. 0 0 3 Active metFORMIN (GLUCOPHAGE) 500 MG tablet Take 1 Tab by mouth once daily 1 Tab 0 6 Active acetaminophen (TYLENOL) 325 MG tablet Take 2 Tabs by mouth every 6 hours as needed for Pain Maximum allowable Acetaminophen amount = 4 Grams (4000 mg) / 24 hours. 09/19/201 6 Active Active Problems No known active problems Immunizations Immunization Administration Dates Next Due INFLUENZA VACCINE, QUADR. (F LUZONE; FLULAVAL; FLUARIX; AFLURIA QUADRIVALENT; 6MO+), 0.5 ML (IIV4) 03/18/2016 PNEUMOCOCCAL PPSV23 02/18/2013 Social History Tobacco Use Types Packs/Day Years Used Date Smoking Tobacco: Former Smokeless Tobacco: Former Quit: 02/07/2000 Alcohol Use Standard Drinks/Week Comments No 0 (1 standard drink = 0.6 oz pur e alcohol) Sex and Gender Information Value Date Recorded Sex Assigned at Not on file Legal Sex Male 6:58 PM CDT Gender Identity Not on file Sexual Orientation Not on file Last Filed Vital Signs Vital Sign Reading Time Taken Comments Blood Pressure 126/85 03/18/2016 11:16 AM CDT Pulse 59 03/18/2016 11:16 AM CDT Temperature 36.6 C (97.8 F) 03/18/2016 11:16 AM CDT Respiratory Rate 18 03/18/2016 11:16 AM CDT Oxygen Saturation 97% 03/18/2016 11:16 AM CDT Inhaled Oxygen Concentration 40% 02/17/2013 2 :10 PM CDT Weight 102.2 kg (225 lb 5 oz) 03/18/2016 3:14 AM CDT Height 177.8 cm (5' 10) 03/14/2016 1:30 PM CDT Body Mass Index 32.33 03/14/2016 1:30 PM CDT Plan of Treatment Health Maintenance Due Date Last Done Comments COLOGUARD (AGES 45-75) - COLON CA SCREENING 1951 COLON MONITORING 1951 COLONOSCOPY - COLON CA SCREENING 1950 CT COLONOGRAPHY - COLON CA SCREENING 1950 Colorectal Cancer Screening 1950 FIT - COLON CA SCREENING 1950 FLEX SIG - COLON CA SCREENING 1950 MEDICARE AWV 12 MONTHS 1950 DTAP/TDAP/TD VACCINES (1 - Tdap) 1970 ZOSTER VACCINE (1 of 2) 2001 PNEUMOCOCCAL VACCINE 50+ (2 of 2 - PCV) 02/18/2014 02/18/2013 AAA SCREENING 2016 DEPRESSION SCREENING 06/29/2024 COVID-19 VACCINE ( season) 2025 09/04/2020 INFLUENZA VACCINE (#1) 2025 , 05/07/2020, 03/12/2018, Additional history exists Respiratory Syncytial Virus (RSV) Vaccine Pt: or over 60 yrs (1 - 1-dose 75+ series) 2026 HEPATITIS C SCREENING Completed 02/04/2013 HEPATITIS B VACCINE Aged Out No longe r eligible based on patient's age to complete this topic HIB VACCINE Aged Out No longer eligi ble based on patient's age to complete this topic HPV VACCINE Aged Out No longer eligi ble based on patient's age to complete this topic MENINGOCOCCAL (Group B) VACCINE SHARED DECISION-MAKING Aged Out No longer eligible based on patient's age to complete this topic MENINGOCOCCAL GROUPS A/C/Y/W VACCINE Aged Out No longer eligible based on patient's age to complete this topic Procedures Procedure Name Priority Date/Time Associated Diagnosis Comments HEPATITIS SCREEN ACUTE Routine 02/04/2013 9:05 AM CDT from Last 3 Months or Most Recently Relevant to Health Maintenance Results * HEPATITIS SCREEN ACUTE (02/04/2013 9:05 AM CDT) HAV Antibody IgM Non Reactive Non Reactive 02/04/2013 7:35 PM CDT [facility] HBsAg Non Reactive Non Reactive 02/04/2013 7:35 PM CDT [facility] HBc Antibody IgM Non Reactive Non Reactive 02/04/2013 7:35 PM CDT [facility] HCV Antibody Screen Non Reactive Non Reactive 02/04/2013 7:35 PM CDT [facility] Blood BLOOD SPECIMEN / Unknown 02/04/2013 9:05 AM CDT 02/04/2013 10:36 AM CDT Narrative [facility] - 02/04/2013 7:35 PM CDT Nonreactive - Antibodies to HCV were not detected, result does not exclude early acute HCV infection. us Renate Underwood MD LAB - CHEMISTRY ORDERABL ES Final Result [facility] [address] [place] [address] from Last 3 Months or Most Recently Relevant to Health Maintenance Insurance MEDICARE [facility] [place] [address] Advance Directives Documents on File Type Date Recorded Patient Cosmetic Consultant Expl anation Adv Directive/Living Will/POA 02/09/2016 9:24 PM * Full Code (Latest Code Status on File) Date Activated Date Inactivated Comments 03/17/2016 1:56 PM 03/18/2016 1:42 PM * Full Code Date Activated Date Inactivated Comments 02/07/2016 4:54 PM 02/08/2016 5:17 PM * FULL RESUSCITATION Date Activated Date Inactivated Comments 02/15/2013 8:51 PM 02/24/2013 2:35 PM Care Teams Handcrew Foreman Relationship Specialty Start Date End Date Brian Lozano MD [address] [place] [address] PCP - General Family Medicine 02/07/16
--- OUTSIDE RECORDS SUMMARY | 2025-05-29 14:33 | XMS_ITS | Encounter Summary ---
Author Organization [facility] Address 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 Gender Identity Not on file Sexual Orientation Not on file documented as of this encounter Plan of Treatment Upcoming Encounters Date Type Department Care Team (Late st Contact Info) Description 08/08/2025 5:15 PM PULP PRESS TENDER Office Visit [facility] Heart and Vascular Electrophysiology - [address] [facility] 300 [address] [facility] [address] [place] [address] documented as of this encounter Visit Diagnoses Not on filedocumented in this encounter Care Teams Evp Global Product Leadership Relationship Specialty Start Date End Date Mike Collazo MD [address] [place] [address] 200 [place] [address] PCP - General Family Practice 08/30/23 documented as of this encounter
--- OUTSIDE RECORDS SUMMARY | 2025-05-29 14:33 | XMS_ITS | Encounter Summary ---
Author Organization [facility] Address [address] [facility] [address] [place] [address] Care Team Providers Care Agriculture Sales Account Manager Name Role Phone Brian Lozano MD Primary Care Provider [phone] Brian Lozano MD Primary Care Provider [phone] Benito Pineda MD Primary Care Provider [phone] Fortunato Leroy MD Unavailable [phone] Maria Alejandra Marquis RN Unavailable [phone] Mike Collazo MD Primary Care Provider [phone] Debi Thorpe Unavailable Unavailable Encounter Details Date Type Department Care Team (Late st Contact Info) Description 01/09/2016 Orders Only [facility] ProviderEly MD [address] [place] [address] Social History Tobacco Use Types Packs/Day Years Used Date Smoking Tobacco: Former Cigarettes Q uit: 06/29/2008 Alcohol Use Standard Drinks/Week Comments No 0 (1 standard drink = 0.6 oz pur e alcohol) Sex and Gender Information Value Date Recorded Sex Assigned at Not on file Legal 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 Historical Provider CV CARDIAC SERVICES PROCE DURES Final Result * CARDIOLOGY REPORT (01/09/2016) Anatomical Region Laterality Modality Other Narrative 01/09/2016 Ordered by an unspecified provider. 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 01/24/13 01/27/2013 01/27/2013 MRSA Comment:MRSA bacteremia in consult note from [facility] in [place], [place] 02/24/2013 02/24/2013 02/13/2021 5:00 AM C DT documented as of this encounter Care Teams Agriculture Sales Account Manager Relationship Specialty Start Date End Date Brian Lozano MD [address] [place] [address] PCP - General 09/26/16 04/09/23 Brian Lozano MD [address] [place] [address] PCP - General 04/04/13 09/25/16 Benito Pineda MD [address] [place] [address] [place] [address] PCP - General Family Medicine 04/10/23 09/13/24 Mike Collazo MD [address] [place] [address] [place] [address] PCP - General Family Medicine 09/14/24 Fortunato Leroy MD [facility] [place] [address] Emergency Management Program Specialist Transplant 08/27/23 Maria Alej[place] RN [address] [address] Heart Failure Coordinator Mineral Engineer 08/27/23 Debi Thorpe Primary Executive Sous Chef 03/16/25 documented as of this encounter
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
--- OUTSIDE RECORDS SUMMARY | 2025-05-29 14:33 | XMS_ITS | Clinical Summary ---
Author Organization [facility] Address [address] [place] [address] Phone Care Team Providers Care Cell Feed Department Supervisor Name Role Phone Mike Collazo MD Primary Care Provider [phone] Allergies No known active allergies Medications aspirin (ECOTRIN EC) 81 mg Tablet, Delayed Release (E.C.) Take 81 mg by mouth daily. Active atorvastatin (LIPITOR) 80 mg tablet Take 80 mg by mouth daily. Active metoprolol succinate (TOPROL XL) 100 mg Extended Release 24 hour tablet Take 100 mg by mouth daily. Active sacubitriL-vals hakeem (Entresto) 24-26 mg Tablet Take 1 Tablet by mouth 2 times daily. 60 Tablet 1 09/03/2023 2:41 PM FRUIT PEELER 09/03/2023 Active empagliflozin (Jardiance) 10 mg tablet Take 10 mg by mouth daily in the morning. Active ezetimibe (ZETIA) 10 mg tablet Take 10 mg by mouth daily. Active mexiletine (MEXITIL) 150 mg capsule Take 1 Capsule (150 mg) by mouth every 8 hours. 270 Capsule 2 02/10/2025 Active amiodarone (CORDARONE) 200 mg tablet Take 1 Tablet (200 mg) by mouth 2 times daily. 180 Tablet 03/09/2025 Active Active Problems Problem Noted Date Diagnosed Date ICD (implantable cardioverter-defibrillator) dis charge 01/27/2025 nursing home current use of antiarrhythmic drug 06/2024 Stage 3a chronic kidney disease (CKD) 08/31/2023 Ventricular tachyarrhythmia 08/30/2023 Chronic left systolic heart failure 08/30/2023 Diabetes mellitus type 2, controlled, without co mplications 08/30/2023 Encounters Date Type Department Care Team Description 05/24/2025 Chart Note [facility] [place] [facility] - [address] [place] [address] Angel Ortiz MD question regarding ICD 05/24/25 05/16/2025 Telephone [facility] [place] [facility] - [address] [facility] [phone] [place] [address] Brenda Ricketts NP Canceled Order 05/12/2025 Results Follow-Up [facility] [place] [facility] - [address] [facility] [address] [place] [address] Angel Ortiz MD ICD ANALYSIS REMOTE, UP TO 90 DAYS 05/09/2025 4:00 PM FRUIT PEELER Procedure visit [facility] [place] [facility] - [address] [place] [phone] Ventricular tachycardia (CMS/HCC) (Primary Dx); Ischemic cardiomyopathy; Presence of cardiac defibrillator 05/03/2025 Telephone [facility] [place] [facility] - [address] [facility] [address] [place] [address] Angel Ortiz MD Home monitor 04/25/2025 External Device Data STL ABSTRACTION Provider, Abstract 04/10/2025 Nurse Only [facility] [place] [facility] - [address] [facility] [address] [place] [address] Cally Betancourt RN 04/03/2025 Chart Note [facility] [place] [facility] - [address] [facility] [phone] [facility] [address] [place] [address] Mehdi Alva MD 03/30/2025 Chart Note [facility] [place] [facility] - [address] [facility] [address] [place] [address] Mehdi Alva MD 03/29/2025 Chart Note [facility] [place] [facility] - [address] [place] [address] Mehdi Alva MD 03/27/2025 Chart Note [facility] [place] [facility] - [address] [facility] [address] [place] [address] Mehdi Alva MD 03/21/2025 External Device Data STL ABSTRACTION Provider, Abstract 03/21/2025 External Device Data STL ABSTRACTION Provider, Abstract 03/20/2025 Chart Note [facility] [place] [facility] - [address] [facility] [address] [address] [facility] [address] [place] [address] Mehdi Alva MD 03/17/2025 Chart Note [facility] [place] [facility] - [address] [facility] [address] [address] [facility] [address] [place] [address] Mehdi Alva MD device report faxed 03/17/25 03/16/2025 Chart Note [facility] [place] [facility] - [address] [facility] [address] [place] [address] Mehdi Alva MD current golf course assistant 03/16/25; device notes faxed 03/16/25 03/16/2025 Chart Note [facility] [place] [facility] - [address] [facility] [address] [place] [address] Mehdi Alva MD 03/13/2025 Chart Note [facility] [place] [facility] - [address] [facility] [address] [address] [place] [address] Mehdi Alva MD 03/10/2025 Chart Note [facility] [place] [facility] - [address] [facility] 202 [address] [facility] [address] [place] [address] Mehdi Alva MD 03/09/2025 Refill [facility] [place] [facility] - [address] [facility] [address] [place] [phone] Brenda Ricketts NP 03/09/2025 Telephone [facility] [place] [facility] - [address] [facility] [address] [place] [address] Brenda Ricketts NP Refill Question 03/08/2025 Chart Note [facility] [place] [facility] - [address] [facility] [phone] [facility] [address] [place] [phone] Mehdi Alva MD 03/07/2025 Chart Note [facility] [place] [facility] - [address] [facility] [address] [address] [facility] [address] [place] [phone] Mehdi Alva MD 03/01/2025 External Device Data STL ABSTRACTION Provider, Abstract 02/28/2025 Chart Note [facility] - [address] [facility] [address] [address] [facility] [address] [place] [phone] Mehdi Alva MD from Last 3 Months Family History Medical History Relation Name Comments Aneurysm Brother Pulmonary embolism Father Heart Disease Mother at 93 Relation Name Status Comments Brother Father Mother Social History Tobacco Use Types Packs/Day Years Used Date Smoking Tobacco: Former Cigarettes 0 Q uit: 1980 Smokeless Tobacco: Never Tobacco Cessation:Counseling Given: Not Answered Alcohol Use Standard Drinks/Week Comments Not Currently [...] on file Legal Sex Male 5:35 PM FRUIT PEELER Gender Identity Not on file Sexual Orientation Not on file Last Filed Vital Signs Vital Sign Reading Time Taken Comments Blood Pressure 97/72 02/10/2025 8:09 AM CDT Pulse 75 02/10/2025 8:09 AM CDT Temperature 36.4 C (97.6 F) 01/27/2025 3:12 PM CDT Respiratory Rate 13 01/27/2025 12:56 PM CDT Oxygen Saturation 100% 01/27/2025 4:47 AM CDT Inhaled Oxygen Concentration - - Weight 78.9 kg (174 lb) 02/10/2025 8:09 AM CDT Height 177.8 cm (5' 10) 02/10/2025 8:09 AM CDT Body Mass Index 24.97 02/10/2025 8:09 AM CDT Plan of Treatment Upcoming Encounters Date Type Department Care Team (Late st Contact Info) Description 08/08/2025 5:15 PM FRUIT PEELER Office Visit [facility] [place] [facility] - [address] [facility] [address] [address] [facility] [address] [place] [address] Health Maintenance Due Date Last Done Comments DIABETES ANNUAL FOOT EXAM 1969 DIABETES ANNUAL RETINAL EXAM 1969 DIABETES MICROALBUMIN ANNUAL SCREEN 1969 LDL CHOLESTEROL ANNUAL 1969 DTAP/TDAP/TD VACCINES (1 - Tdap) 1970 COLORECTAL SCREENING 1996 Colorectal Cancer Screening 1996 FIT-DNA Q 3 years 1996 FIT/FOBT Q 1 year 1996 Flex Sig/CT Colonography Q 5 years 1996 RSV VACCINE (60+ or ) (1 - Risk 50-74 years 1-dose series) 2001 ZOSTER VACCINE (1 of 2) 2001 PNEUMOCOCCAL VACCINE 50+ YEARS (2 of 2 - PCV) 02/19/20 14 02/18/2013 DIABETES HBA1C Q 6 MONTHS 03/02/2024 08/31/2023 INFLUENZA VACCINE (#1) 2025 03/18/2016 Abdominal Aortic Aneurysm (AAA) Screening Completed 02/03/2013 Medical Devices Implanted Type Area Hay Farmer Device Identifier Shelf Expiration Date Model / Serial / Lot Closure Perclose Proglide [id number] - [id number] Implanted:Qty: 1 on 08/31/2023 at [facility] Closure Device Right: Groin MTZ- VASC DEVICE 03/28/2025 [id number] / / [id number] Hemostatic Surg Powder [id number] - [id number] Implanted:Qty: 1 on 11/02/2023 at [facility] Hemostatic Left: Chest [employer] 12/26/2024 [id number] / [id number] / [id number] Icd Gen Implanted:Qty: 1 on 11/02/2023 by Dave Naidu MD at [facility] N/A: Chest Wall [id number] / [id number] / Explanted Type Area Hay Farmer Device Identifier Shelf Expiration Date Model / Serial / Lot Icd Gen Explanted:Qty : 1 on 11/02/2023 by Dave Naidu MD at [facility] Defibrillator N/A: Chest Wall [id number] / [id number] / Description:Implant date: Procedures Procedure Name Priority Date/Time Associated Diagnosis Comments ICD ANALYSIS REMOTE, UP TO 90 DAYS Routine 05/09/2025 2:00 AM FRUIT PEELER Ventricular tachycardia (CMS/HCC) Ischemic cardiomyopathy Presence of cardiac defibrillator HEMOGLOBIN A1C Routine 08/31/2023 2:01 AM FRUIT PEELER from Last 3 Months or Most Recently Relevant to Health Maintenance Results * ICD ANALYSIS REMOTE, UP TO 90 DAYS (05/09/2025 2:00 AM FRUIT PEELER) 05/09/2025 2:00 AM FRUIT PEELER Narrative INTERFACE SYSTEM - 05/11/2025 8:32 PM FRUIT PEELER Mr. Franco had a remote follow up of his [employer] biventricular ICD. The device is functioning normally. Battery status is stable with an estimated longevity of 4.6 years. The lead impedances are stable. Ventricular sensing thresholds are stable. No atrial arrhythmias have been detected. There were 78 VT episodes. Stored EGMs showed VT that was successfully terminated with ATP. AP-100% GREENHOUSE WORKER-100%. Remote follow up in 3 months. Procedure Note Provider, Historical - 05/11/2025 Mr. Franco had a remote follow up of his [employer] biventricularICD. The device is functioning normally. Battery status is stable with anestimated longevity of 4.6 years. The lead impedances are stable.Ventricular sensing thresholds are stable. No atrial arrhythmias have been detected. There were 78 VT episodes.Stored EGMs showed VT that was successfully terminated with ATP. AP-100%GREENHOUSE WORKER-100%. Remote follow up in 3 months. Angel Ortiz MD CARDIAC SERVICES ORDERABLES F inal Result Performing Organization Address City/State/[facility] Co de Phone Number INTERFACE SYSTEM Refer to clinic/hospital department * (ABNORMAL) HEMOGLOBIN A1C (08/31/2023 2:01 AM FRUIT PEELER) HEMOGLOBIN A1C 6.4(H) <=5.6 % 08/31/2023 4:59 AM FRUIT PEELER [facility] EST. AVG GLUCOSE, A1C 137 mg/dL 08/31/2023 4:59 AM FRUIT PEELER [facility] Blood Venipuncture / Unknown 08/31/2023 2:01 AM FRUIT PEELER 08/31/2023 4:38 AM FRUIT PEELER Narrative [facility] - 08/31/2023 4:59 AM FRUIT PEELER HGB A1C INTERPRETATION NORMAL: <5.7% PRE-DIABETES: 5.7 - 6.4% DIABETES: 6.5% OR GREATER Serafin Jalloh MD CHEMISTRY ORDERABLES Final Resul t [facility] CLIA# [id number] [place] [address] from Last 3 Months or Most Recently Relevant to Health Maintenance Insurance MEDICARE PART A AND B [facility] RX [facility] Medicare Part D RX [facility] Commercial RX [employer] Commercial RX [employer] Commercial Advance Directives For more information, please contact: [phone] Documents on File Type Date Recorded 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
--- OUTSIDE RECORDS SUMMARY | 2025-05-29 14:33 | XMS_ITS | Encounter Summary ---
Author Organization [facility] Address [address] [facility] [address] [place] [address] Care Team Providers Care Interactive Media Specialist Name Role Phone Brian Lozano MD Primary Care Provider [phone] Brian Lozano MD Primary Care Provider [phone] Benito Pineda MD Primary Care Provider [phone] Fortunato Leroy MD Unavailable [phone] Maria Alejandra Marquis RN Unavailable [phone] Mike Collazo MD Primary Care Provider [phone] Debi Thorpe Unavailable Unavailable Encounter Details Date Type Department Care Team (Late st Contact Info) Description 05/21/2016 Orders Only [facility] ProviderEly MD [address] [place] [address] Social History Tobacco Use Types Packs/Day Years Used Date Smoking Tobacco: Former Cigarettes Q uit: 06/29/2008 Alcohol Use Standard Drinks/Week Comments No 0 (1 standard drink = 0.6 oz pur e alcohol) Sex and Gender Information Value Date Recorded Sex Assigned at Not on file Legal Sex Male 10:50 AM BEARING INSPECTOR Gender Identity Male 05/09/2021 4:04 PM BEARING INSPECTOR Sexual Orientation Not on file documented as of this encounter Functional Status documented as of this encounter Plan of Treatment Not on file documented as of this encounter Procedures Procedure Name Priority Date/Time Associated Diagnosis Comments CARDIOLOGY REPORT 05/21/2016 documented in this encounter Results * CARDIOLOGY REPORT (05/21/2016) Anatomical Region Laterality Modality Other Narrative 05/21/2016 Ordered by an unspecified provider. 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 01/24/13 01/27/2013 01/27/2013 MRSA Comment:MRSA bacteremia in consult note from [facility] in [place], [place] 02/24/2013 02/24/2013 02/13/2021 5:00 AM C DT documented as of this encounter Care Teams Interactive Media Specialist Relationship Specialty Start Date End Date Brian Lozano MD [address] [place] [address] PCP - General 09/26/16 04/09/23 Brian Lozano MD [address] [place] [address] PCP - General 04/04/13 09/25/16 Benito Pineda MD [address] [place] [address] [place] [address] PCP - General Family Medicine 04/10/23 09/13/24 Mike Collazo MD [address] [place] [address] DR PETER [address] [place] [address] PCP - General Family Medicine 09/14/24 Fortunato Leroy MD [address] [place] [address] [place] [address] [facility] 08/27/23 Maria Alejandra Marquis, RN [address] [address] Heart Failure Coordinator Ruling Machine Set Up Operator 08/27/23 Debi Thorpe Primary Elevator Erector 03/16/25 documented as of this encounter
== END 2025-05-29 13:28 | disposition home or self-care (01) ==
PROVIDERS: PCP Family Medicine; Visit Provider Internal Medicine Nephrology
DX: I42.9 Cardiomyopathy, unspecified (principal); I12.9 Hypertensive chronic kidney disease with stage 1 through stage 4 chronic kidney disease, or unspecified chronic kidney disease; N18.31 Chronic kidney disease, stage 3a; N28.1 Cyst of kidney, acquired
CPT/HCPCS: 76770